=== PATIENT | female | born 1950 | race Caucasian/White ===

== ENCOUNTER 2024-12-05 03:35 | Emergency (ER) | payer MEDICARE, MEDICAID, SELFPAY ==
[2024-12-05 03:37] VITALS: BP 159/70; PULSE 67; RESP 18; TEMP 36.7; O2SAT 98; BMI 27.4
[2024-12-05 03:54] LABS: Hematocrit 36.9 % (37.0-47.0); Hemoglobin 12.2 g/dL (12.2-16.2); Immature Granulocytes % 0.1 %; Mean Corpuscular HGB Conc 33.1 g/dL (31.8-35.4); Mean Corpuscular Hemoglobin 30.4 pg (27.0-31.2); Mean Corpuscular Volume 92.0 fl (81-99); Nucleated Red Blood Cells % 0 %; Platelet Count 224 K/mm3 (142-424); Red Blood Count 4.01 M/mm3 (4.20-5.40); Red Cell Distribution Width-SD 45.1 fL; White Blood Count 6.7 K/mm3 (4.8-10.8)
[2024-12-05] MEDS: ACETAMINOPHEN 500MG TAB 1000 MG PO (03:56)
[2024-12-05 03:57] LABS: Albumin Level 4.4 g/dl (3.5-5.0); Chloride 105 mmol/L (98-107); Potassium 3.5 mmoL/L (3.5-5.1); Sodium 134 mmol/L (136-145)
[2024-12-05 04:00] LABS: Alanine Aminotransferase 20 U/L (12-78); Albumin/Globulin Ratio 2.0 (1.1-1.8); Alkaline Phosphatase 70 U/L (38-126); Anion Gap 8.5 mEq/L (5-15); Aspartate Amino Transferase 24 U/L (14-36); Bilirubin,Total 1.0 mg/dl (0.2-1.3); Blood Urea Nitrogen 10 mg/dl (7-17); Calcium 9.5 mg/dl (8.4-10.2); Carbon Dioxide 24 mmol/L (22.0-30.0); Creatinine Clearance Estimated 55 mL/min (50-200); Creatinine,Serum 0.70 mg/dl (0.52-1.04); Estimated Glomerular Filt Rate 82 ml/min (>60); GFR (African American) 100 ML/MIN (>60); Globulin 2.2 g/dL (1.3-3.2); Glucose 112 mg/dl (74-100); Magnesium 2.1 mg/dl (1.6-2.3); Phosphorous 3.2 mg/dl (2.5-4.5); Total Protein,Serum 6.6 g/dl (6.3-8.2)
[2024-12-05 04:13] LABS: Acetaminophen < 10 ug/ml (10-30); Salicylate < 1.0 mg/dL (2.0-20.0)
[2024-12-05 04:23] LABS: T4 (Thyroxine) 6.7 ug/dl (5.53-11.0)
[2024-12-05 04:36] LABS: Thyroid Stimulating Hormone 1.80 uIU/mL (0.465-4.68)
--- NOTE | 2024-12-05 04:38 | PC.NURSE ---
Called [facility] for a possible transfer to [facility]
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
[2024-12-05 05:10] LABS: Hepatitis C Ab Qual. W/ RFX NEGATIVE (Negative)
[2024-12-05 05:11] LABS: Microscopic, Urine URINE MICROSCOPIC (MICROSCOPIC)
[2024-12-05 05:13] LABS: Bilirubin,Urine Negative (Negative); Color,Urine YELLOW (Yellow); Glucose,Urine (UA) Negative (Negative); Ketones,Urine Negative (Negative); Leukocyte Esterase,Urine 1+ (Negative); PH,Urine 7.0 (5.0-8.5); Protein,Urine Negative (Negative); Specific Gravity, Urine 1.020 (1.005-1.030); Urobilinogen,Urine 1.0 EU/dl (0.2)
[2024-12-05 05:20] LABS: Bacteria,Urine Trace /lpf; RBC,Urine Occasional #/hpf (0-3); Squamous Epithelial Cell,Urine Occasional #/hpf (0-5)
[2024-12-05 05:26] LABS: Amphetamine/Metha Screen,Urine Negative ng/ml (<1000); Benzodiazepines Screen,Urine Positive ng/ml (<200)
[2024-12-05 05:27] LABS: Barbiturates Screen,Urine Negative ng/ml (<200)
[2024-12-05 05:29] LABS: Methadone Screen,Urine Negative ng/ml (<300); Opiate Screen,Urine Negative ng/ml (<300)
[2024-12-05 05:30] LABS: Phencyclidine Screen,Urine Negative ng/ml (<25)
--- NOTE | 2024-12-05 05:31 | PC.NURSE ---
Report to Carmelita RAMIREZ.
--- NOTE | 2024-12-05 05:34 | PC.NURSE ---
IV removed with cath intact.
[2024-12-05 05:53] VITALS: BP 145/71; PULSE 65; RESP 16; TEMP 36.8; O2SAT 98
--- NOTE | 2024-12-07 10:59 | PC.NURSE ---
[facility] spoke with employee there. She verbally took preliminary urine culture results over the phone and states she will make sure that information gets forwarded to appropriate person.
== END 2024-12-05 05:55 ==
PROVIDERS: Emergency Provider Emergency Medicine
DX: F31.10 Bipolar disorder, current episode manic without psychotic features, unspecified (principal); R44.3 Hallucinations, unspecified; R45.1 Restlessness and agitation
CPT/HCPCS: 80053; 80307; 80329; 81001; 83735; 84100; 84436; 84443; 85025; 86803; 87086; 87088; 87186; 87389; 99285

== ENCOUNTER 2025-02-17 17:34 | Emergency (ER) | payer MEDICARE, MEDICAID, SELFPAY ==
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
[2025-02-17] VITALS (7 sets, daily range): BP systolic 153–170; BP diastolic 70–78; PULSE 72–82; RESP 16–20; TEMP 36.6–37.4; O2SAT 96–99; BMI 32.0
--- OUTSIDE RECORDS SUMMARY | 2025-02-17 17:57 | XMS_ITS | Encounter Summary ---
Author Organization Healthcare Address [address] [place] [address] Care Team Providers Care Service Planner Name Role Phone Pcp, No Primary Care Provider Unavailabl e Encounter Details Date Type Department Care Team (Late st Contact Info) Description 12/14/2024 Lab Requisition [facility] [address] [place] [address] German Abarca MD [address] [place] [address] Routine general medical examination at a health care facility Social History Tobacco Use Types Packs/Day Years [...] answer 12/05/2024 How often do you attend chur or religion services? Patient unable to answer 12/05/2024 Do you belong to any clubs o r organizations such as religious groups, unions, fraternal or athletic groups, or [...] one occasion? Patient unable to answer 12/05/2024 [facility] - Occupational Stress Questionnaire Answer Date Recorded [...] any time in the past 12 m ont, were you homeless or living in a alf (including now)? Patient unable to answer 12/05/2024 [...] on file documented as of this encounter Plan of Treatment Not on file documented as of this encounter Procedures Procedure Name Priority Date/Time Associated Diagnosis Comments CBC WITH AUTO DIFFERENTIAL Routine 12/14/2024 5:57 AM EDT Routine general medical examination at a health care facility VALPROIC ACID LEVEL, TOTAL Routine 12/14/2024 5:57 AM EDT Routine general medical examination at a health care facility COMPREHENSIVE METABOLIC PANEL, PLASMA Routine 12/14/2024 5:57 AM EDT Routine general medical examination at a health care facility documented in this encounter Results * (ABNORMAL) Comprehensive metabolic panel (12/14/2024 5:57 AM EDT) Glucose, Plasma 100(H) 74 - 99 mg/dL 12/14/2024 10:07 AM EDT [facility] BUN, Plasma 18 8 - 23 mg/dL 12/14/2024 10:07 AM [facility] Creatinine, Plasma 0.70 0.60 - 1.10 mg/dL 12/14/2024 10:07 AM [facility] BUN/Creatinine Ratio 26 12/14/2024 10:07 AM [facility] Sodium, Plasma 144 136 - 145 mmol/L 12/14/2024 10:07 AM [facility] Potassium, Plasma 4.2 3.6 - 4.9 mmol/L 12/14/2024 10:07 AM [facility] Chloride, Plasma 105 97 - 107 mmol/L 12/14/2024 10:07 AM [facility] CO2, Plasma 29 22 - 29 mmol/L 12/14/2024 10:07 AM [facility] Anion Gap 10 6 - 16 mmol/L 12/14/2024 10:07 AM [facility] Total Calcium, Plasma 9.0 8.9 - 10.2 mg/dL 12/14/2024 10:07 AM [facility] Total Protein 5.7(L) 6.3 - 7.9 g/dL 12/14/2024 10:07 AM [facility] Albumin, Plasma 3.7 3.5 - 5.2 g/dL 12/14/2024 10:07 AM [facility] AST, Plasma 36(H) 10 - 35 U/L 12/14/2024 10:07 AM [facility] ALT, Plasma 29 10 - 35 U/L 12/14/2024 10:07 AM [facility] Alkaline Phosphatase, Plasma 61 46 - 142 U/L 12/14/2024 10:07 AM [facility] Total Bilirubin, Plasma 0.2 0.2 - 1.1 mg/dL 12/14/2024 10:07 AM [facility] eGFRcr 92.0 mL/min/1.7 3m*2 12/14/2024 10:07 AM [facility] Comment:Reported eGFRcr in m L/min/1.73m2 is based the CKD-EPI 2020 equation that does not use a race coefficient. Blood Venous blood specimen / Unknown Venipuncture / Unknown 12/14/2024 5:57 AM EDT 12/14/2024 7:43 AM EDT us German Abarca MD LAB BLOOD ORDERABLES Final Result [facility] [address] [place] [address] * CBC and Differential (12/14/2024 5:57 AM EDT) WBC Count 7.27 3.70 - 10.30 10*3/uL LAB HEMATOLOGY METHOD 12/14/2024 9:42 AM EDT [facility] RBC Count 4.06 3.90 - 5.20 10*6/uL LAB HEMATOLOGY METHOD 12/14/2024 9:42 AM EDT [facility] HGB 12.2 11.2 - 15.7 g/dL LAB HEMATOLOGY METHOD 12/14/2024 9:42 AM EDT [facility] HCT 38.0 34.0 - 45.0 % LAB HEMATOLOGY METHOD 12/14/2024 9:42 AM EDT [facility] Platelet Count 243 155 - 369 10*3/uL LAB HEMATOLOGY METHOD 12/14/2024 9:42 AM EDT [facility] MCV 94 79 - 98 fL LAB HEMATOLOGY METHOD 12/14/2024 9:42 AM EDT [facility] MCH 30.0 26.0 - 32.0 pg LAB HEMATOLOGY METHOD 12/14/2024 9:42 AM EDT [facility] MCHC 32.1 30.7 - 35.5 g/dL LAB HEMATOLOGY METHOD 12/14/2024 9:42 AM EDT [facility] RDW 13.0 11.5 - 14.5 % LAB HEMATOLOGY METHOD 12/14/2024 9:42 AM EDT [facility] MPV 10.0 8.8 - 12.5 fL LAB HEMATOLOGY METHOD 12/14/2024 9:42 AM EDT [facility] nRBC 0.0 <=0.0 per 100 WBCs LAB HEMATOLOGY METHOD 12/14/2024 9:42 AM EDT [facility] Differential Type Automated LAB HEMATOLOGY METHOD 12/14/2024 9:42 AM EDT [facility] Neutrophils % 49 % LAB HEMATOLOGY METHOD 12/14/2024 9:42 AM EDT [facility] Lymphocytes % 39 % LAB HEMATOLOGY METHOD 12/14/2024 9:42 AM EDT [facility] Monocytes % 9 % LAB HEMATOLOGY METHOD 12/14/2024 9:42 AM EDT [facility] Eosinophils % 2 % LAB HEMATOLOGY METHOD 12/14/2024 9:42 AM EDT [facility] Basophils % 1 % LAB HEMATOLOGY METHOD 12/14/2024 9:42 AM EDT [facility] Immature Granulocytes % 0 % LAB HEMATOLOGY METHOD 12/14/2024 9:42 AM EDT [facility] Neutrophils Absolute 3.55 1.60 - 6.10 10*3/uL LAB HEMATOLOGY METHOD 12/14/2024 9:42 AM EDT [facility] Lymphocytes Absolute 2.85 1.20 - 3.90 10*3/uL LAB HEMATOLOGY METHOD 12/14/2024 9:42 AM EDT [facility] Monocytes Absolute 0.68 0.30 - 0.90 10*3/uL LAB HEMATOLOGY METHOD 12/14/2024 9:42 AM EDT [facility] Eosinophils Absolute 0.11 0.00 - 0.50 10*3/uL LAB HEMATOLOGY METHOD 12/14/2024 9:42 AM EDT [facility] Basophils Absolute 0.06 0.00 - 0.10 10*3/uL LAB HEMATOLOGY METHOD 12/14/2024 9:42 AM EDT [facility] Immature Granulocytes Absolute 0.02 0.00 - 0.06 10*3/uL LAB HEMATOLOGY METHOD 12/14/2024 9:42 AM EDT [facility] Blood Venous blood specimen / Unknown Venipuncture / Unknown 12/14/2024 5:57 AM EDT 12/14/2024 7:43 AM EDT Narrative [facility] - 12/14/2024 9:42 AM EDT Therapeutic decision making should be based on absolute values, rather than percentages. us German Abarca MD LAB BLOOD ORDERABLES Final Result [facility] [address] [place] [address] * (ABNORMAL) Valproic acid level, total (12/14/2024 5:57 AM EDT) Valproic Acid 30(L) 50 - 100 ug/mL 12/14/2024 11:01 AM EDT [facility] Blood Venous blood specimen / Unknown Venipuncture / Unknown 12/14/2024 5:57 AM EDT 12/14/2024 7:43 AM EDT Narrative [facility] - 12/14/2024 11:01 AM EDT Therapeutic: 50 to 100 ug/mL Supratherapeutic: >120 ug/mL us German Abarca MD LAB BLOOD ORDERABLES Final Result [facility] [address] [place] [address] documented in this encounter Visit Diagnoses Diagnosis Routine general medical examination at a health care facility documented in this encounter Care Teams Service Planner Relationship Specialty Start Date End Date Pcp, No [address] [place] [address] PCP - General Family Medicine 12/05/24 documented as of this encounter
--- OUTSIDE RECORDS SUMMARY | 2025-02-17 17:58 | XMS_ITS | Encounter Summary ---
Author Organization Healthcare Address [address] [id number] Care Team Providers Care Sports Umpire Name Role Phone Pcp, No Primary Care Provider Unavailabl e Encounter Details Date Type Department Care Team (Late st Contact Info) Description 12/11/2024 Lab Requisition [facility] [address] [place] [address] Arvind Connell MD [address] [phone] Routine general medical examination at a health [...] How often do you attend chur or quaker services? Patient unable to answer 12/05/2024 Do you belong to any clubs o r organizations such as jainism groups, unions, fraternal or athletic groups, or [...] one occasion? Patient unable to answer 12/05/2024 [facility] - Occupational Stress Questionnaire Answer Date [...] any time in the past 12 m [facility], were you homeless or living in a half-way (including now)? Patient unable to answer 12/05/2024 [...] Procedure Name Priority Date/Time Associated Diagnosis Comments METHYLMALONIC ACID SERUM Routine 12/11/2024 6:34 AM EDT Routine general medical examination at a health care facility VITAMIN D 25 HYDROXY Routine 12/11/2024 6:34 AM EDT Routine general medical examination at a health care facility VITAMIN B1 (THIAMINE), WHOLE BLOOD (SO) Routine 12/11/2024 6:34 AM EDT Routine general medical examination at a health care facility VITAMIN B12, SERUM Routine 12/11/2024 6: 34 AM EDT Routine general medical examination at a health care facility documented in this encounter Results * Vitamin D 25 Hydroxy (12/11/2024 6:34 AM EDT) Vitamin D 25 Hydroxy 44.6 20.0 - 80.0 ng/mL 12/11/2024 10:49 AM EDT [facility] Blood Venous blood specimen / Unknown Venipuncture / Unknown 12/11/2024 6:34 AM EDT 12/11/2024 8:[address] [facility] - 12/11/2024 10:49 AM EDT Testing performed on Sebastian Bargeman, standardized against NIST SRM 2972. When testing samples from patients whose predominant form of vitamin D is vitamin D2, such as patients receiving vitamin D2 supplementation, results that are subtherapeutic should be confirmed with another method, such as LC-MS/MS, before being used for patient management. Vitamin D, 25-Hydroxy reference range, age 18 years and up: Deficiency: <12 ng/mL Insufficiency: 12 to 19 ng/mL Sufficiency: 20 to 80 ng/mL Possible toxicity: >100 ng/mL Arvind Connell MD LAB BLOOD ORDERABLES Final Res ult Performing Organization Address [facility] Co de Phone Number [facility] [address] [place] [address] * Methylmalonic acid, serum (12/11/2024 6:34 AM EDT) Methylmalonic Acid 88 50 - 400 nmol/L 12/14/2024 3:[address] [facility] Blood Venous blood specimen / Unknown Venipuncture / Unknown 12/11/2024 6:34 AM EDT 12/11/2024 8:[address] [facility] - 12/14/2024 3:24 AM EDT Test performed by LC-MS/MS at the [facility]. This test was developed and its performance characteristics determined by [facility]. It has not been cleared or approved by the FDA. The laboratory is regulated under CLIA as qualified to perform high-complexity testing. This test is used for clinical purposes. Arvind Connell MD LAB BLOOD ORDERABLES Final Res ult [facility] [address] [place] [address] * Vitamin B1, Whole Blood (12/11/2024 6:34 AM EDT) VITAMIN B1, WHOLE BLOOD 124 70 - 180 nmol/L 12/14/2024 5:56 AM EDT [facility] Blood Venous blood specimen / Unknown Venipuncture / Unknown 12/11/2024 6:34 AM EDT 12/11/2024 6:40 AM EDT Narrative [facility] - 12/14/2024 5:56 AM EDT INTERPRETIVE INFORMATION: Vitamin B1, Whole Blood This assay measures the concentration of thiamine diphosphate (TDP), the primary active form of vitamin B1. Approximately 90 percent of vitamin B1 present in whole blood is TDP. Thiamine and thiamine monophosphate, which comprise the remaining 10 percent, are not measured. This test was developed and its performance characteristics determined by [facility]. It has not been cleared or approved by the [place] Food and Drug Administration. This test was performed in a CLIA certified laboratory and is intended for clinical purposes. Performed By: [facility] [address] [place] [address] Plater Supervisor: Ernie Miranda MD, PhD CLIA Number: [id number] Arvind Connell MD LAB BLOOD ORDERABLES Final Res ult Performing Organization Address [facility] de Phone Number [facility] [address] [place] [address] * Vitamin B12 (12/11/2024 6:34 AM EDT) [facility] Vitamin B12, Serum 263 210 - 1,033 pg/mL 12/11/2024 10:39 AM EDT [facility] Blood Venous blood specimen / Unknown Venipuncture / Unknown 12/11/2024 6:34 AM EDT 12/11/2024 8:20 AM EDT Arvind Connell MD LAB BLOOD ORDERABLES Final Res ult [facility] [address] [place] [address] documented in this encounter Visit Diagnoses Diagnosis Routine general medical examination at a health care facility documented in this encounter Care Teams Sports Umpire Relationship Specialty Start Date End Date Pcp, No [address] [place] [address] PCP - General Family Medicine 12/05/24 documented as of this encounter
--- OUTSIDE RECORDS SUMMARY | 2025-02-17 17:58 | XMS_ITS | Encounter Summary ---
Author Organization Healthcare Address [address] [place] [address] Care Team Providers Care Automated Manufacturing Instructor Name Role Phone Pcp, No Primary Care Provider Unavailabl e Encounter Details Date Type Department Care Team (Late st Contact Info) Description 01/02/2025 Lab Requisition [facility] [address] [place] [address] Lewis Price MD [address] [place], [place] [id number] Routine general medical examination at a health [...] How often do you attend chur or islam services? Patient unable to answer 12/05/2024 Do you belong to any clubs o r organizations such as amish groups, unions, fraternal or athletic groups, or [...] one occasion? Patient unable to answer 12/05/2024 [facility] - Occupational Stress Questionnaire Answer Date [...] were you homeless or living in a custodial (including now)? Patient unable to answer 12/05/2024 [...] Recorded In the past 12 months has e electric, gas, oil, or water company [...] Diagnosis Comments CBC WITH AUTO DIFFERENTIAL Routine 01/02/2025 7:43 AM EDT Routine general medical examination at a health care facility VALPROIC ACID LEVEL, TOTAL Routine 01/02/2025 7:43 AM EDT Routine general medical examination at a health care facility COMPREHENSIVE METABOLIC PANEL, PLASMA Routine 01/02/2025 7:43 AM EDT Routine general medical examination at a health care facility documented in this encounter Results * (ABNORMAL) Comprehensive metabolic panel (01/02/2025 7:43 AM EDT) Glucose, Plasma 98 74 - 99 mg/dL 01/02/2025 11:44 AM EDT [facility] BUN, Plasma 14 8 - 23 mg/dL 01/02/2025 11:44 AM EDT [facility] Creatinine, Plasma 0.66 0.60 - 1.10 mg/dL 01/02/2025 11:44 AM EDT [facility] BUN/Creatinine Ratio 21 01/02/2025 11:44 AM EDT [facility] Sodium, Plasma 137 136 - 145 mmol/L 01/02/2025 11:44 AM T [facility] Potassium, Plasma 4.6 3.6 - 4.9 mmol/L 01/02/2025 11:44 AM [facility] Chloride, Plasma 99 97 - 107 mmol/L 01/02/2025 11:44 AM T [facility] CO2, Plasma 26 22 - 29 mmol/L 01/02/2025 11:44 AM T [facility] Anion Gap 12 6 - 16 mmol/L 01/02/2025 11:44 AM T [facility] Total Calcium, Plasma 8.5(L) 8.9 - 10.2 mg/dL 01/02/2025 11:44 AM [facility] Total Protein 6.1(L) 6.3 - 7.9 g/dL 01/02/2025 11:44 AM [facility] Albumin, Plasma 4.0 3.5 - 5.2 g/dL 01/02/2025 11:44 AM T [facility] AST, Plasma 19 10 - 35 U/L 01/02/2025 11:44 AM [facility] ALT, Plasma 13 10 - 35 U/L 01/02/2025 11:44 AM [facility] Alkaline Phosphatase, Plasma 64 46 - 142 U/L 01/02/2025 11:44 AM [facility] Total Bilirubin, Plasma 0.2 0.2 - 1.1 mg/dL 01/02/2025 11:44 AM [facility] eGFRcr 93.3 mL/min/1.7 3m*2 01/02/2025 11:44 AM [facility] Comment:Reported eGFRcr in m L/min/1.73m2 is based the CKD-EPI 2020 equation that does not use a race coefficient. Blood Venous blood specimen / Unknown Venipuncture / Unknown 01/02/2025 7:43 AM EDT 01/02/2025 8:36 AM EDT us Lewis Price MD LAB BLOOD ORDERABLES Fin al Result [facility] [address] [place] [address] * CBC and Differential (01/02/2025 7:43 AM EDT) WBC Count 7.53 3.70 - 10.30 10*3/uL LAB HEMATOLOGY METHOD 01/02/2025 11:16 AM EDT [facility] RBC Count 4.14 3.90 - 5.20 10*6/uL LAB HEMATOLOGY METHOD 01/02/2025 11:16 AM EDT [facility] HGB 12.5 11.2 - 15.7 g/dL LAB HEMATOLOGY METHOD 01/02/2025 11:16 AM EDT [facility] HCT 39.3 34.0 - 45.0 % LAB HEMATOLOGY METHOD 01/02/2025 11:16 AM EDT [facility] Platelet Count 294 155 - 369 10*3/uL LAB HEMATOLOGY METHOD 01/02/2025 11:16 AM EDT [facility] MCV 95 79 - 98 fL LAB HEMATOLOGY METHOD 01/02/2025 11:16 AM EDT [facility] MCH 30.2 26.0 - 32.0 pg LAB HEMATOLOGY METHOD 01/02/2025 11:16 AM EDT [facility] MCHC 31.8 30.7 - 35.5 g/dL LAB HEMATOLOGY METHOD 01/02/2025 11:16 AM EDT [facility] RDW 13.3 11.5 - 14.5 % LAB HEMATOLOGY METHOD 01/02/2025 11:16 AM EDT [facility] MPV 10.0 8.8 - 12.5 fL LAB HEMATOLOGY METHOD 01/02/2025 11:16 AM EDT [facility] nRBC 0.0 <=0.0 per 100 WBCs LAB HEMATOLOGY METHOD 01/02/2025 11:16 AM EDT [facility] Differential Type Automated LAB HEMATOLOGY METHOD 01/02/2025 11:16 AM EDT [facility] Neutrophils % 61 % LAB HEMATOLOGY METHOD 01/02/2025 11:16 AM EDT [facility] Lymphocytes % 25 % LAB HEMATOLOGY METHOD 01/02/2025 11:16 AM EDT [facility] Monocytes % 10 % LAB HEMATOLOGY METHOD 01/02/2025 11:16 AM EDT [facility] Eosinophils % 2 % LAB HEMATOLOGY METHOD 01/02/2025 11:16 AM EDT [facility] Basophils % 1 % LAB HEMATOLOGY METHOD 01/02/2025 11:16 AM EDT [facility] Immature Granulocytes % 1 % LAB HEMATOLOGY METHOD 01/02/2025 11:16 AM EDT [facility] Neutrophils Absolute 4.63 1.60 - 6.10 10*3/uL LAB HEMATOLOGY METHOD 01/02/2025 11:16 AM EDT [facility] Lymphocytes Absolute 1.89 1.20 - 3.90 10*3/uL LAB HEMATOLOGY METHOD 01/02/2025 11:16 AM EDT [facility] Monocytes Absolute 0.73 0.30 - 0.90 10*3/uL LAB HEMATOLOGY METHOD 01/02/2025 11:16 AM EDT [facility] Eosinophils Absolute 0.16 0.00 - 0.50 10*3/uL LAB HEMATOLOGY METHOD 01/02/2025 11:16 AM EDT [facility] Basophils Absolute 0.06 0.00 - 0.10 10*3/uL LAB HEMATOLOGY METHOD 01/02/2025 11:16 AM EDT [facility] Immature Granulocytes Absolute 0.06 0.00 - 0.06 10*3/uL LAB HEMATOLOGY METHOD 01/02/2025 11:16 AM EDT [facility] Blood Venous blood specimen / Unknown Venipuncture / Unknown 01/02/2025 7:43 AM EDT 01/02/2025 8:36 AM EDT Narrative [facility] - 01/02/2025 11:16 AM EDT Therapeutic decision making should be based on absolute values, rather than percentages. us Lewis Price MD LAB BLOOD ORDERABLES Fin al Result [facility] [address] [place] [id number] * Valproic acid level, total (01/02/2025 7:43 AM EDT) Valproic Acid 71 50 - 100 ug/mL 01/02/2025 11:13 AM EDT [facility] Blood Venous blood specimen / Unknown Venipuncture / Unknown 01/02/2025 7:43 AM EDT 01/02/2025 8:36 AM EDT Narrative [facility] - 01/02/2025 11:13 AM EDT Therapeutic: 50 to 100 ug/mL Supratherapeutic: >120 ug/mL us Lewis Price MD LAB BLOOD ORDERABLES Fin al Result [facility] [address] [place] [address] documented in this encounter Visit Diagnoses Diagnosis Routine general medical examination at a health care facility documented in this encounter Care Teams Automated Manufacturing Instructor Relationship Specialty Start Date End Date Pcp, No [address] [place] [address] PCP - General Family Medicine 12/05/24 documented as of this encounter
--- OUTSIDE RECORDS SUMMARY | 2025-02-17 17:58 | XMS_ITS | Encounter Summary ---
Author Organization Healthcare Address [address] [place] [address] Care Team Providers Care Gis Engineer Name Role Phone Pcp, No Primary Care Provider Unavailabl e Encounter Details Date Type Department Care Team (Late st Contact Info) Description 12/13/[address] [facility] [address] [place] [address] Barrera Everett PA [address] [place] [address] Routine general medical examination at [...] How often do you attend chur or yazdanism services? Patient unable to answer 12/05/2024 Do you belong to any clubs o r organizations such as pentecostalism groups, unions, fraternal or athletic groups, or [...] one occasion? Patient unable to answer 12/05/2024 [facility] - Occupational Stress Questionnaire Answer Date [...] were you homeless or living in a halfway (including now)? Patient unable to answer 12/05/2024 [...] on file documented as of this encounter Visit Diagnoses Diagnosis Routine general medical examination at a health care facility documented in this encounter Care Teams Gis Engineer Relationship Specialty Start Date End Date Pcp, [place] [address] PCP - General Family Medicine 12/05/24 documented as of this encounter
--- OUTSIDE RECORDS SUMMARY | 2025-02-17 17:58 | XMS_ITS | Encounter Summary ---
Author Organization Healthcare Address [address] [place] [address] Care Team Providers Care Bank Officer Name Role Phone Pcp, No Primary Care Provider Unavailabl e Encounter Details Date Type Department Care Team (Late st Contact Info) Description 12/12/2024 Lab Requisition [facility] [address] [place] [address] Jennifer Krishnan PA [address] [place] [address] Routine general medical examination at [...] How often do you attend chur or roman catholic services? Patient unable to answer 12/05/2024 Do you belong to any clubs o r organizations such as yazidism groups, unions, fraternal or athletic groups, or [...] one occasion? Patient unable to answer 12/05/2024 [facility] - Occupational Stress Questionnaire Answer Date Recorded [...] any time in the past 12 m onths, were you homeless or living in a [...] Procedure Name Priority Date/Time Associated Diagnosis Comments SEND JENNIFER MESSAGE Routine 12/12/2024 8: 00 AM EDT Routine general medical examination at a health care facility URINALYSIS WITH REFLEX MICROSCOPIC AND CULTURE Routine 12/12/2024 8:00 AM EDT Routine general medical examination at a health care facility URINE ASHTON PANEL Routine 12/12/2024 8:00 AM EDT Routine general medical examination at a health care facility URINALYSIS MICROSCOPIC FOR UA REFLEX Routine 12/12/2024 8:00 AM EDT Routine general medical examination at a health care facility URINALYSIS WITH REFLEX MICROSCOPIC Routine 12/12/2024 8:00 AM EDT Routine general medical examination at a health care facility URINE CULTURE Routine 12/12/2024 8:00 AM EDT Routine general medical examination at a health care facility documented in this encounter Results * SEND JENNIFER MESSAGE (12/12/2024 8:00 AM EDT) Urine Urine specimen obtained by clean catch procedure / Unknown Non-blood Collection / Unknown 12/12/2024 8:00 AM EDT 12/12/2024 9:20 AM EDT Jennifer WHITLEY [facility] URINE ORDERABLES Final Re sult Performing Organization Address [facility] de Phone Number [facility] [address] [place] [address] * Urine Culture (12/12/2024 8:00 AM EDT) Culture 10,000 - 100,000 CFU/mL Mixed urogenital, fecal, or skin ge present. 12/13/2024 2:05 PM EDT [facility] Urine Urine specimen obtained by clean catch procedure / Unknown Non-blood Collection / Unknown 12/12/2024 8:00 AM EDT 12/12/2024 9:20 AM EDT us Jennifer WHITLEY [facility] MICROBIOLOGY - GENERAL OR DERABLES Final Result Performing Organization Address [facility] Phone Number [facility] [address] [place] [address] * Urinalysis Microscopic Examination (12/12/2024 8:00 AM EDT) Urine Urine specimen obtained by clean catch procedure / Unknown Non-blood Collection / Unknown 12/12/2024 8:00 AM EDT 12/12/2024 9:20 AM EDT us Jennifer WHITLEY [facility] URINE ORDERABLES Final Re sult Performing Organization Address [facility] Co de Phone Number [facility] [address] [place] [address] * Urine [place] Panel (12/12/2024 8:00 AM EDT) Extra Sent for Culture 12/12/2024 1:01 PM EDT [facility] Comment:Previously prelim ve rified as Specimen evaluation in progress on 12/12/2024 at 1201 EDT. Urine Urine specimen obtained by clean catch procedure / Unknown Non-blood Collection / Unknown 12/12/2024 8:00 AM EDT 12/12/2024 9:20 AM EDT us Jennifer WHITLEY [facility] URINE ORDERABLES Final Re sult [facility] [address] [place] [address] * (ABNORMAL) Urinalysis with reflex microscopic (Culture NOT Included) (12/12/2024 8:00 AM EDT) Color, Urine Yellow LAB URINALYSIS - AUTOMATED METHOD 12/12/2024 12:14 PM EDT [facility] Clarity, Urine Cloudy LAB URINALYSIS - AUTOMATED METHOD 12/12/2024 12:14 PM EDT [facility] Spec [place], Urine 1.021 1.005 - 1.030 LAB URINALYSIS - AUTOMATED METHOD 12/12/2024 12:14 PM EDT [facility] pH, Urine 6.5 5.0 - 8.0 LAB URINALYSIS - AUTOMATED METHOD 12/12/2024 12:14 PM EDT [facility] Protein, Urine Trace(A) Negative mg/dL LAB URINALYSIS - AUTOMATED METHOD 12/12/2024 12:14 PM EDT [facility] Glucose, Urine Negative Negative mg/dL LAB URINALYSIS - AUTOMATED METHOD 12/12/2024 12:14 PM EDT [facility] Ketones, Urine 15(A) Negative mg/dL LAB URINALYSIS - AUTOMATED METHOD 12/12/2024 12:14 PM EDT [facility] Blood, Urine Negative Negative LAB URINALYSIS - AUTOMATED METHOD 12/12/2024 12:14 PM EDT [facility] Bilirubin, Urine Negative Negative LAB URINALYSIS - AUTOMATED METHOD 12/12/2024 12:14 PM EDT [facility] Urobilinogen, Urine 1.0 0.2 to 1.0 mg/dL LAB URINALYSIS - AUTOMATED METHOD 12/12/2024 12:14 PM EDT [facility] Leukocytes, Urine Moderate(A) Negative LAB URINALYSIS - AUTOMATED METHOD 12/12/2024 12:14 PM EDT [facility] Nitrite, Urine Negative Negative LAB URINALYSIS - AUTOMATED METHOD 12/12/2024 12:14 PM EDT [facility] RBC, Urine <1 0 to 3 /HPF 12/12/2024 12:14 PM EDT [facility] Comment:This result was prev iously suppressed from the chart. WBC, Urine 11 - 20(A) 0 to 5 /HPF 12/12/2024 12:14 PM EDT [facility] Comment:This result was prev iously suppressed from the chart. Squamous Epithelial Cells 11 - 20(A) 0 to 5 /HPF 12/12/2024 12:14 PM EDT [facility] Comment:This result was prev iously suppressed from the chart. Hyaline Casts 0 - 2 0 to 5 /LPF 12/12/2024 12:14 PM EDT [facility] Comment:This result was prev iously suppressed from the chart. Bacteria, Urine Present Negative 12/12/2024 12:14 PM EDT [facility] Comment:This result was prev iously suppressed from the chart. Calcium Oxalate Crystals Present Absent 12/12/2024 12:14 PM EDT [facility] Comment:This result was prev iously suppressed from the chart. Mucus Present 12/12/2024 12:14 PM EDT [facility] Comment:This result was prev iously suppressed from the chart. Urine Urine specimen obtained by clean catch procedure / Unknown Non-blood Collection / Unknown 12/12/2024 8:00 AM EDT 12/12/2024 9:20 AM EDT Narrative [facility] - 12/12/2024 12:14 PM EDT Performed by manual method us Jennifer WHITLEY LAB URINE ORDERABLES Final Re sult [facility] [address] [place] [address] documented in this encounter Visit Diagnoses Diagnosis Routine general medical examination at a health care facility documented in this encounter Care Teams Bank Officer Relationship Specialty Start Date End Date Pcp, Valeria [address] [place] [address] PCP - General Family Medicine 12/05/24 documented as of this encounter
--- OUTSIDE RECORDS SUMMARY | 2025-02-17 17:58 | XMS_ITS | Clinical Summary ---
Author Organization Healthcare Address [address] [place] [address] Care Team Providers Care Results Technician Name Role Phone Pcp, No Primary Care Provider Unavailabl e Allergies Active Allergy Reactions Criticality Noted Date Comments Aspirin Unknown - Patient st ates they do not know rxn details Low 06/10/2014 Sulfacetamide Unknown - Patient st ates they do not know rxn details Low 06/10/2014 Medications traZODone (Desyrel) 50 MG tabletIndications:B ehavioral Disorders associated with Dementia,Insomnia Take 1 tablet by mouth nightly. 5 Active OLANZapine zydis (ZyPREXA) 15 MG disintegrating tabletIndications:D elirium,Manic Phase of Bipolar Mood Disorder Dissolve 1 tablet on the tongue nightly. 5 Active divalproex (Depakote) [address] tabletIndications:M anic Phase of Bipolar Mood Disorder Take 1 tablet by mouth 2 times a day. Do not crush, chew, or split. 5 Active Active Problems Problem Noted Date Diagnosed Date Neurocognitive disorder 12/10/2024 Hyperlipidemia 12/10/2024 Vitamin D deficiency 12/10/2024 Allergic rhinitis 12/10/2024 Delirium 12/09/2024 Encounters Date Type Department Care Team Description 01/02/2025 Lab Requisition [facility] [address] [place] [address] Lewis Price MD Routine general medical examination at a health care facility 12/25/2024 Lab Requisition [facility] [address] [place] [address] Shailesh Slaughter DO Routine general medical examination at a health care facility 12/21/2024 11:42 AM EDT - 12/21/2024 11:59 PM EDT Hospital Encounter [facility] [address] [place] [address] Bipolar disorder; Cognitive decline; Acute psychosis (CMS/HCC) Discharge Disposition: Home or Self Care 12/21/2024 Travel 12/14/2024 Lab Requisition [facility] [address] [place] [address] German Abarca MD Routine general medical examination at a health care facility 12/13/2024 Telephone [facility] [address] [place] [address] Joan Flores 12/13/2024 Lab Requisition [facility] [address] [place] [address] Barrera Everett PA Routine general medical examination at a health care facility 12/12/2024 Lab Requisition [facility] [address] [place] [address] Jennifer Krishnan PA Routine general medical examination at a health care facility 12/11/2024 Lab Requisition [facility] [address] [place] [address] Arvind Connell MD Routine general medical examination at a health care facility 12/05/2024 7:24 AM EDT - 12/10/2024 4:30 PM EDT Hospital Encounter [facility] [address] [place] [address] Ian lamar, MD Ebonie Ramos Sarah M, DO Unspecified mood (affective) disorder (CMS/HCC) (Primary Dx); Bipolar disorder, current episode manic without psychotic features, unspecified (CMS/HCC) Discharge Disposition: Psychiatric Hospital 12/05/2024 Plan of Care Documentation [facility] [address] [place] [address] 12/05/2024 Travel from Last 3 Months Family History Medical History Relation Name Comments Bone cancer Father Heart attack Mother Hypertension Mother Stroke Mother Relation Name Status Comments Father Mother Social History Tobacco Use Types Packs/Day Years [...] answer 12/05/2024 How often do you attend [facility] or evangelical services? Patient unable to answer 12/05/2024 Do [...] one occasion? Patient unable to answer 12/05/2024 [facility] - Occup[facility] Stress [...] any time in the past 12 m [facility], were you homeless or living in a long-term (including now)? Patient unable to answer 12/05/2024 [...] the past 12 months has th e [employer], gas, oil, or water company threatened to shut off services in your home? Patient unable to answer 12/05/2024 Comments Unknown Sex and Gender Information Value Date Recorded Sex Assigned at Not on file Legal Sex Female 6:49 PM EDT Gender Identity Not on file Sexual Orientation Not on file Last Filed Vital Signs Vital Sign Reading Time Taken Comments Blood Pressure 116/69 12/10/2024 5:37 AM EDT Pulse 75 12/10/2024 5:37 AM EDT Temperature 36.7 C (98.1 F) 12/10/2024 5:37 AM EDT Respiratory Rate 20 12/07/2024 4:42 PM EDT Oxygen Saturation 98% 12/10/2024 5:37 AM EDT Inhaled Oxygen Concentration - - Weight 67.4 kg (148 lb 9.4 oz) 12/10/2024 5:52 A M EDT Height 152.4 cm (5') 12/05/2024 5:00 PM EDT Body Mass Index 29.02 12/05/2024 5:00 PM EDT Plan of Treatment Health Maintenance Due Date Last Done Comments [facility]-Bone Density Scan 1950 [facility]-Depression Screening 1950 [facility]-Hepatitis C Screening 1950 [facility]-Medicare Annual Wellness (AWV) 1950 [facility]-Obesity Intervention 1958 CT Colonography 1997 FIT-DNA 1997 FIT 1997 FOBT 1997 Sigmoidoscopy 1997 [facility]-Breast Cancer Screening 2002 [facility]-Zoster Vaccines (1 of 2) 2002 [facility]-IVITL-80 Vaccine ( season) 2025 06/11/2024, 12/07/2021, 12/21/2020, Additional history exists [facility]-Influenza Vaccine (#1) 01/14/202503/15, 03/02/2021, 02/28/2014, Additional history exists [facility]- SDOH Screenings 06/07/2025 [facility]-Adult SDOH Screenings 06/07/2025 12/05/2024 [facility]-/Child/Adol SDOH Screenings 06/07/2025 12/05/2024 Colonoscopy 11/05/2025 11/06/2015 [facility]-Colorectal Cancer Screening 11/05/2025 [facility]-Diabetes: Hemoglobin A1C 12/05/2025 12/05/2024, 02/05/2016 [facility]-RSV Vaccine: 60+ Years or (1 - 1-dose 75+ series) 2027 [facility]-DTaP,Tdap,and Td Vaccines (2 - Td or Tdap) 06/11/2034 06/11/2024 [facility]-Pneumococcal Vaccine: 50+ Years Completed 06/11/2024, 08/12/2021, 02/28/2014 HPV Vaccines Aged Out No longer eligi ble based on patient's age to complete this topic [facility]-HIB Vaccines Aged Out No longer e ligible based on patient's age to complete this topic [facility]-Hepatitis A Vaccines Aged Out No longer eligible based on patient's age to complete this topic [facility]-IPV Vaccines Aged Out No longer e ligible based on patient's age to complete this topic [facility]-Rotavirus Vaccines Aged Out No lo nger eligible based on patient's age to complete this topic Procedures Procedure Name Priority Date/Time Associated Diagnosis Comments COMPREHENSIVE METABOLIC PANEL, PLASMA Routine 01/02/2025 7:43 AM EDT Routine general medical examination at a health care facility CBC WITH AUTO DIFFERENTIAL Routine 01/02/2025 7:43 AM EDT Routine general medical examination at a health care facility VALPROIC ACID LEVEL, TOTAL Routine 01/02/2025 7:43 AM EDT Routine general medical examination at a health care facility VALPROIC ACID LEVEL, TOTAL Routine 12/25/2024 6:40 AM EDT Routine general medical examination at a health care facility CBC WITH AUTO DIFFERENTIAL Routine 12/25/2024 6:00 AM EDT Routine general medical examination at a health care facility ECG ADULT Routine 12/21/2024 2:01 PM EDT Therapeutic drug monitoring CT HEAD WO IV CONTRAST Routine 11:57 AM EDT Bipolar disorder Cognitive decline Acute psychosis (CMS/HCC) COMPREHENSIVE METABOLIC PANEL, PLASMA Routine 12/14/2024 5:57 AM EDT Routine general medical examination at a health care facility CBC WITH AUTO DIFFERENTIAL Routine 12/14/2024 5:57 AM EDT [facility] VALPROIC ACID LEVEL, TOTAL Routine 12/14/2024 5:57 AM EDT Routine general medical examination at a [facility] SEND JENNIFER MESSAGE Routine 12/12/2024 8: 00 AM EDT Routine general medical examination at a health care facility URINALYSIS MICROSCOPIC FOR UA REFLEX Routine 12/12/2024 8:00 AM EDT Routine general medical examination at a health care facility URINE ASHTON PANEL Routine 12/12/2024 8:00 AM EDT Routine general medical examination at a [facility] URINALYSIS WITH REFLEX MICROSCOPIC Routine 12/12/2024 8:00 AM EDT Routine general medical examination at a [facility] URINALYSIS WITH REFLEX MICROSCOPIC AND CULTURE Routine 12/12/2024 8:00 AM EDT Routine general medical examination at a health care facility URINE CULTURE Routine 12/12/2024 8:00 AM EDT Routine general medical examination at a [facility] VITAMIN D 25 HYDROXY Routine 12/11/2024 6:34 AM EDT Routine general medical examination at a health care facility METHYLMALONIC ACID SERUM Routine 12/11/2024 6:34 AM EDT Routine general medical examination at a health care facility VITAMIN B1 (THIAMINE), WHOLE BLOOD (SO) Routine 12/11/2024 6:34 AM EDT Routine general medical examination at a health care facility VITAMIN B12, SERUM Routine 12/11/2024 6: 34 AM EDT Routine general medical examination at a health care facility SEND JENNIFER MESSAGE STAT 12/05/2024 8: 51 PM EDT URINALYSIS MICROSCOPIC FOR UA REFLEX STAT 12/05/2024 8:51 PM EDT URINE ASHTON PANEL STAT 12/05/2024 8:51 PM EDT URINALYSIS WITH REFLEX MICROSCOPIC STAT 12/05/2024 8:51 PM EDT URINALYSIS WITH REFLEX MICROSCOPIC AND CULTURE STAT 12/05/2024 8:51 PM EDT URINE CULTURE STAT 12/05/2024 8:51 PM EDT LIPID PROFILE, PLASMA STAT 12/05/2024 8:30 PM EDT HEMOGLOBIN A1C STAT 12/05/2024 8:30 PM EDT FREE T4, PLASMA STAT 12/05/2024 8:30 PM EDT TSH STAT 12/05/2024 8:30 PM EDT PHOSPHORUS, PLASMA STAT 12/05/2024 8: 30 PM EDT MAGNESIUM, PLASMA STAT 12/05/2024 8:3 0 PM EDT COMPREHENSIVE METABOLIC PANEL, PLASMA STAT 12/05/2024 8:30 PM EDT CBC WITH AUTO DIFFERENTIAL STAT 12/05/2024 8:30 PM EDT HEPATITIS B SURFACE ANTIGEN - EMPATH STAT 12/05/2024 11:56 AM EDT HIV 1/2 ANTIBODY/ANTIGEN SCREEN WITH REFLEX TO HIV I/II DIFFERENTIATION STAT 12/05/2024 10:58 AM EDT HIV 1/2 ANTIBODY/ANTIGEN SCREEN W/REFLEX TO HIV 1/2 ANTIBODY DIFFERENTIATION STAT 12/05/2024 10:58 AM EDT HEPATITIS C ANTIBODY WITH REFLEX TO HCV QUANT PCR - EMPATH STAT 12/05/2024 10:57 AM EDT COLONOSCOPY 11/06/2015 from Last 3 Months or Most Recently Relevant to Health Maintenance Results * CBC and Differential (01/02/2025 7:43 AM EDT) Only the most recent of4 resultswithin the time period is included. WBC Count 7.53 3.70 - 10.30 10*3/uL LAB HEMATOLOGY METHOD 01/02/2025 11:16 AM EDT [facility] RBC Count 4.14 3.90 - 5.20 10*6/uL LAB HEMATOLOGY METHOD 01/02/2025 11:16 AM EDT [facility] HGB 12.5 11.2 - 15.7 g/dL LAB HEMATOLOGY METHOD 01/02/2025 11:16 AM EDT [facility] HCT 39.3 34.0 - 45.0 % LAB HEMATOLOGY METHOD 01/02/2025 11:16 AM EDT [facility] Platelet Count 294 155 - 369 10*3/uL LAB HEMATOLOGY METHOD 01/02/2025 11:16 AM EDT [facility] MCV 95 79 - 98 fL LAB HEMATOLOGY METHOD 01/02/2025 11:16 AM EDT [facility] MCH 30.2 26.0 - 32.0 pg LAB HEMATOLOGY METHOD 01/02/2025 11:16 AM EDT [facility] MCHC 31.8 30.7 - 35.5 g/dL LAB HEMATOLOGY METHOD 01/02/2025 11:16 AM EDT [facility] RDW 13.3 11.5 - 14.5 % LAB HEMATOLOGY METHOD 01/02/2025 11:16 AM EDT [facility] MPV 10.0 8.8 - 12.5 fL LAB HEMATOLOGY METHOD 01/02/2025 11:16 AM EDT [facility] nRBC 0.0 <=0.0 per 100 WBCs LAB HEMATOLOGY METHOD 01/02/2025 11:16 AM EDT [facility] Differential Type Automated LAB HEMATOLOGY METHOD 01/02/2025 11:16 AM EDT [facility] Neutrophils % 61 % LAB HEMATOLOGY METHOD 01/02/2025 11:16 AM EDT [facility] Lymphocytes % 25 % LAB HEMATOLOGY METHOD 01/02/2025 11:16 AM EDT [facility] Monocytes % 10 % LAB HEMATOLOGY METHOD 01/02/2025 11:16 AM EDT [facility] Eosinophils % 2 % LAB HEMATOLOGY METHOD 01/02/2025 11:16 AM EDT [facility] Basophils % 1 % LAB HEMATOLOGY METHOD 01/02/2025 11:16 AM EDT [facility] Immature Granulocytes % 1 % LAB HEMATOLOGY METHOD 01/02/2025 11:16 AM EDT [facility] Neutrophils Absolute 4.63 1.60 - 6.10 10*3/uL LAB HEMATOLOGY METHOD 01/02/2025 11:16 AM EDT [facility] Lymphocytes Absolute 1.89 1.20 - 3.90 10*3/uL LAB HEMATOLOGY METHOD 01/02/2025 11:16 AM EDT [facility] Monocytes Absolute 0.73 0.30 - 0.90 10*3/uL LAB HEMATOLOGY METHOD 01/02/2025 11:16 AM EDT [facility] Eosinophils Absolute 0.16 0.00 - 0.50 10*3/uL LAB HEMATOLOGY METHOD 01/02/2025 11:16 AM EDT [facility] Basophils Absolute 0.06 0.00 - 0.10 10*3/uL LAB HEMATOLOGY METHOD 01/02/2025 11:16 AM EDT [facility] Immature Granulocytes Absolute 0.06 0.00 - 0.06 10*3/uL LAB HEMATOLOGY METHOD 01/02/2025 11:16 AM EDT [facility] Blood Venous blood specimen / Unknown Venipuncture / Unknown 01/02/2025 7:43 AM EDT 01/02/2025 8:36 AM EDT Narrative [facility] - 01/02/2025 11:16 AM EDT Therapeutic decision making should be based on absolute values, rather than percentages. us Lewis Price MD LAB BLOOD ORDERABLES Fin al Result [facility] [address] [place] [id number] * Valproic acid level, total (01/02/2025 7:43 AM EDT) Only the most recent of3 resultswithin the time period is included. Valproic Acid 71 50 - 100 ug/mL 01/02/2025 11:13 AM EDT [facility] Blood Venous blood specimen / Unknown Venipuncture / Unknown 01/02/2025 7:43 AM EDT 01/02/2025 8:36 AM EDT Narrative [facility] - 01/02/2025 11:13 AM EDT Therapeutic: 50 to 100 ug/mL Supratherapeutic: >120 ug/mL us Lewis Price MD LAB BLOOD ORDERABLES Fin al Result [facility] [address] [place] [address] * (ABNORMAL) Comprehensive metabolic panel (01/02/2025 7:43 AM EDT) Only the most recent of3 resultswithin the time period is included. Glucose, Plasma 98 74 - 99 mg/dL 01/02/2025 11:44 AM EDT [facility] BUN, Plasma 14 8 - 23 mg/dL 01/02/2025 11:44 AM EDT [facility] Creatinine, Plasma 0.66 0.60 - 1.10 mg/dL 01/02/2025 11:44 AM EDT [facility] BUN/Creatinine Ratio 21 01/02/2025 11:44 AM EDT [facility] Sodium, Plasma 137 136 - 145 mmol/L 01/02/2025 11:44 AM EDT [facility] Potassium, Plasma 4.6 3.6 - 4.9 mmol/L 01/02/2025 11:44 AM EDT [facility] Chloride, Plasma 99 97 - 107 mmol/L 01/02/2025 11:44 AM EDT [facility] CO2, Plasma 26 22 - 29 mmol/L 01/02/2025 11:44 AM EDT [facility] Anion Gap 12 6 - 16 mmol/L 01/02/2025 11:44 AM EDT [facility] Total Calcium, Plasma 8.5(L) 8.9 - 10.2 mg/dL 01/02/2025 11:44 AM EDT [facility] Total Protein 6.1(L) 6.3 - 7.9 g/dL 01/02/2025 11:44 AM EDT [facility] Albumin, Plasma 4.0 3.5 - 5.2 g/dL 01/02/2025 11:44 AM EDT [facility] AST, Plasma 19 10 - 35 U/L 01/02/2025 11:44 AM EDT [facility] ALT, Plasma 13 10 - 35 U/L 01/02/2025 11:44 AM EDT [facility] Alkaline Phosphatase, Plasma 64 46 - 142 U/L 01/02/2025 11:44 AM EDT [facility] Total Bilirubin, Plasma 0.2 0.2 - 1.1 mg/dL 01/02/2025 11:44 AM EDT [facility] eGFRcr 93.3 mL/min/1.7 3m*2 01/02/2025 11:44 AM EDT [facility] Comment:Reported eGFRcr in m L/min/1.73m2 is based the CKD-EPI 2020 equation that does not use a race coefficient. Blood Venous blood specimen / Unknown Venipuncture / Unknown 01/02/2025 7:43 AM EDT 01/02/2025 8:36 AM EDT us Lewis Price MD LAB BLOOD ORDERABLES Fin al Result [facility] [address] [place] [address] * ECG Adult (Now - Performed in your clinic) (12/21/2024 2:01 PM EDT) EKG DIAGNOSIS CLASS Normal MUSE ECG Ventricular Rate 79 BPM MUSE ECG Atrial Rate 79 BPM MUSE ECG OH Interval 148 ms MUSE ECG QRSD Interval 84 ms MUSE ECG QT Interval 382 ms MUSE ECG QTC Interval 438 ms MUSE ECG P Yeso 60 degrees MUSE ECG R Yeso -35 degrees MUSE ECG T Wave Yeso 31 degrees MUSE ECG Diagnosis Normal sinus rhythm MUSE ECG Diagnosis Normal ECG MUSE ECG Diagnosis MUSE ECG Diagnosis Confirmed by Oskar Nelson ([id number]) on 12/24/2024 11:00:50 AM MUSE ECG 12/21/2024 2:01 PM EDT 12/24/2024 11:00 AM EDT us German Abarca MD ECG ORDERABLES Final Resul t MUSE ECG * CT Head wo IV Contrast (12/21/2024 [...] error, please notify the sender immediately at [phone] and permanently delete the original report and destroy any copies or printouts. Narrative 12/23/2024 8:22 AM EDT [facility] - Phone Outpatient NAME: Angie Keen DATE OF EXAM: 12/21/2024 Patient No: [id number] Physician: Tevin^German^iRdge Date of : 1950 Past Medical/Surgical History [...] (recent vs historical dx?), who presented to [facility] via EMS from [facility] ([facility]) with concerns of manic symptoms and altered mental status, and admitted 12/05/[address] [facility] for continued management of the same. They were subsequently admitted to [facility] 12/05/2024 on 72 hour hold for [...] Keen DATE OF EXAM: 12/21/2024 Patient No: [id number] Physician: Tevin^German^Ridge Date of : 1950 Past Medical/Surgical History (entered by technologist): Symptoms/Reason For Exam (entered by technologist): Dx: Bipolar disorder;Cognitive decline; Acute psychosis Tech Notes (entered by technologist): No contrast; Dx: Bipolar disorder;Cognitive decline; Acute psychosis. 12/10/24: 74 yo female with a PMHx ofCOPD and hyponatremia per tayla review, and reported psychiatric hx ofBPAD2 (recent vs historical dx?), who [facility] with concerns of manic symptoms and altered mentalstatus, and admitted 12/05/[address] [facility] for continued management of thesame. They were subsequently admitted to [facility] 12/05/2024 on 72 hour holdfor continued [...] in error, pleasenotify the sender immediately at [phone] and permanently delete theoriginal report and destroy any copies or printouts. us German Abarca MD IMG CT PROCEDURES Final Res ult * SEND JENNIFER MESSAGE (12/12/2024 8:00 AM EDT) Only the most recent of2 resultswithin the time period is included. Urine Urine specimen obtained by clean catch procedure / Unknown Non-blood Collection / Unknown 12/12/2024 8:00 AM EDT 12/12/2024 9:20 AM EDT Jennifer WHITLEY LAB URINE ORDERABLES Final Re sult Performing Organization Address City/[facility] Co de Phone Number [facility] [address] [place] [address] * Urine [place] Panel (12/12/2024 8:00 AM EDT) Only the most recent of2 resultswithin the time period is included. Extra Sent for Culture 12/12/2024 1:01 PM EDT [facility] Comment:Previously prelim ve rified as Specimen evaluation in progress on 12/12/2024 at 1201 EDT. Urine Urine specimen obtained by clean catch procedure / Unknown Non-blood Collection / Unknown 12/12/2024 8:00 AM EDT 12/12/2024 9:20 AM EDT Jennifer WHITLEY LAB URINE ORDERABLES Final Re sult Performing Organization Address City/State/[facility] Co de Phone Number [facility] [address] [place] [address] * Urinalysis Microscopic Examination (12/12/2024 8:00 AM EDT) Only the most recent of2 resultswithin the time period is included. Urine Urine specimen obtained by clean catch procedure / Unknown Non-blood Collection / Unknown 12/12/2024 8:00 AM EDT 12/12/2024 9:20 AM EDT us Jennifer WHITLEY LAB URINE ORDERABLES Final Re sult [facility] [address] [place] [address] * (ABNORMAL) Urinalysis with reflex microscopic (Culture NOT Included) (12/12/2024 8:00 AM EDT) Only the most recent of2 resultswithin the time period is included. Color, Urine Yellow LAB URINALYSIS - AUTOMATED METHOD 12/12/2024 12:14 PM EDT [facility] Clarity, Urine Cloudy LAB URINALYSIS - AUTOMATED METHOD 12/12/2024 12:14 PM EDT [facility] Spec [place], Urine 1.021 1.005 - 1.030 LAB URINALYSIS - AUTOMATED METHOD 12/12/2024 12:14 PM EDT [facility] pH, Urine 6.5 5.0 - 8.0 LAB URINALYSIS - AUTOMATED METHOD 12/12/2024 12:14 PM EDT [facility] Protein, Urine Trace(A) Negative mg/dL LAB URINALYSIS - AUTOMATED METHOD 12/12/2024 12:14 PM EDT [facility] Glucose, Urine Negative Negative mg/dL LAB URINALYSIS - AUTOMATED METHOD 12/12/2024 12:14 PM EDT [facility] Ketones, Urine 15(A) Negative mg/dL LAB URINALYSIS - AUTOMATED METHOD 12/12/2024 12:14 PM EDT [facility] Blood, Urine Negative Negative LAB URINALYSIS - AUTOMATED METHOD 12/12/2024 12:14 PM EDT [facility] Bilirubin, Urine Negative Negative LAB URINALYSIS - AUTOMATED METHOD 12/12/2024 12:14 PM EDT [facility] Urobilinogen, Urine 1.0 0.2 to 1.0 mg/dL LAB URINALYSIS - AUTOMATED METHOD 12/12/2024 12:14 PM EDT [facility] Leukocytes, Urine Moderate(A) Negative LAB URINALYSIS - AUTOMATED METHOD 12/12/2024 12:14 PM EDT [facility] Nitrite, Urine Negative Negative LAB URINALYSIS - AUTOMATED METHOD 12/12/2024 12:14 PM EDT [facility] RBC, Urine <1 0 to 3 /HPF 12/12/2024 12:14 PM EDT [facility] Comment:This result was prev iously suppressed from the chart. WBC, Urine 11 - 20(A) 0 to 5 /HPF 12/12/2024 12:14 PM EDT [facility] Comment:This result was prev iously suppressed from the chart. Squamous Epithelial Cells 11 - 20(A) 0 to 5 /HPF 12/12/2024 12:14 PM EDT [facility] Comment:This result was prev iously suppressed from the chart. Hyaline Casts 0 - 2 0 to 5 /LPF 12/12/2024 12:14 PM EDT [facility] Comment:This result was prev iously suppressed from the chart. Bacteria, Urine Present Negative 12/12/2024 12:14 PM EDT [facility] Comment:This result was prev iously suppressed from the chart. Calcium Oxalate Crystals Present Absent 12/12/2024 12:14 PM EDT [facility] Comment:This result was prev iously suppressed from the chart. Mucus Present 12/12/2024 12:14 PM EDT [facility] Comment:This result was prev iously suppressed from the chart. Urine Urine specimen obtained by clean catch procedure / Unknown Non-blood Collection / Unknown 12/12/2024 8:00 AM EDT 12/12/2024 9:20 AM EDT Narrative [facility] - 12/12/2024 12:14 PM EDT Performed by manual method us Jennifer WHITLEY LAB URINE ORDERABLES Final Re sult [facility] [address] [place] [address] * Urine Culture (12/12/2024 8:00 AM EDT) Only the most recent of2 resultswithin the time period is included. Culture 10,000 - 100,000 CFU/mL Mixed urogenital, fecal, or skin ge present. 12/13/2024 2:05 PM EDT [facility] Urine Urine specimen obtained by clean catch procedure / Unknown Non-blood Collection / Unknown 12/12/2024 8:00 AM EDT 12/12/2024 9:20 AM EDT us Jennifer WHITLEY LAB MICROBIOLOGY - GENERAL OR DERABLES Final Result Performing Organization Address [facility]/ZIP Co de Phone Number [facility] [address] [place] [address] * Methylmalonic acid, serum (12/11/2024 6:34 AM EDT) Methylmalonic Acid 88 50 - 400 nmol/L 12/14/2024 3:24 AM EDT [facility] Blood Venous blood specimen / Unknown Venipuncture / Unknown 12/11/2024 6:34 AM EDT 12/11/2024 8:20 AM EDT Narrative [facility] - 12/14/2024 3:24 AM EDT Test performed by LC-MS/MS at the [facility]. This test was developed and its performance characteristics determined by [facility]. It has not been cleared or approved by the FDA. The laboratory is regulated under CLIA as qualified to perform high-complexity testing. This test is used for clinical purposes. us Arvind Connell MD LAB BLOOD ORDERABLES Final Res ult [facility] [address] [place] [address] * Vitamin D 25 Hydroxy (12/11/2024 6:34 AM EDT) Vitamin D 25 Hydroxy 44.6 20.0 - 80.0 ng/mL 12/11/2024 10:49 AM EDT [facility] Blood Venous blood specimen / Unknown Venipuncture / Unknown 12/11/2024 6:34 AM EDT 12/11/2024 8:20 AM EDT Narrative [facility] - 12/11/2024 10:49 AM EDT Testing performed on [employer], standardized against NIST SRM [id number]. When testing [...] MD LAB BLOOD ORDERABLES Final Res ult [facility] [address] [place] [address] * Vitamin B1, Whole Blood (12/11/2024 6:34 AM EDT) Pathologist [facility] VITAMIN B1, WHOLE BLOOD 124 70 - 180 nmol/L 12/14/2024 5:56 AM EDT [facility] ([facility]) Blood Venous blood specimen / Unknown Venipuncture / Unknown 12/11/2024 6:34 AM EDT 12/11/2024 6:40 AM EDT Narrative [facility] (ELY) - 12/14/2024 5:56 AM EDT INTERPRETIVE INFORMATION: Vitamin B1, Whole Blood This assay measures the concentration of thiamine diphosphate (TDP), the primary active form of vitamin B1. Approximately 90 percent of vitamin B1 present in whole blood is TDP. Thiamine and thiamine monophosphate, which comprise the remaining 10 percent, are not measured. This test was developed and its performance characteristics determined by [facility]. It has not been cleared or approved by the US Food and Drug Administration. This test was performed in a CLIA certified laboratory and is intended for clinical purposes. Performed By: [facility] [address] [place] [id number] Test Hole Driller: Ernie Miranda MD, PhD CLIA Number: [id number] Arvind Connell MD LAB BLOOD ORDERABLES Final Res ult [facility] (ELY) [address] [place] [address] * Vitamin B12 (12/11/2024 6:34 AM EDT) Vitamin B12, Serum 263 210 - 1,033 pg/mL 12/11/2024 10:39 AM EDT [facility] Blood Venous blood specimen / Unknown Venipuncture / Unknown 12/11/2024 6:34 AM EDT 12/11/2024 8:20 AM EDT Arvind Connell MD LAB BLOOD ORDERABLES Final Res ult Performing Organization Address City/[facility]/ZIP Co de Phone Number [facility] [address] [place] [address] * Thyroid Stimulating Hormone, Plasma (12/05/2024 8:30 PM EDT) Thyroid Stimulating Hormone, Plasma 2.05 0.40 - 4.20 uIU/mL 12/05/2024 9:08 PM EDT [facility] Blood Venous blood specimen / Unknown Venipuncture / Unknown 12/05/2024 8:30 PM EDT 12/05/2024 8:34 PM EDT Result [facility] Abram Farfan APRN, DNP LAB BLOOD ORDERABLES Fi nal Result Performing Organization Address City/[facility]/ZIP Co de Phone Number [facility] [address] [place] [address] * Free T4, Plasma (12/05/2024 8:30 PM EDT) Free T4, Plasma 1.4 0.8 - 1.7 ng/dL 12/05/2024 9:06 PM EDT [facility] Blood Venous blood specimen / Unknown Venipuncture / Unknown 12/05/2024 8:30 PM EDT 12/05/2024 8:34 PM EDT Abram Farfan APRN, FABIAN LAB BLOOD ORDERABLES Fi nal Result Performing Organization Address City/[facility]/ZIP Co de Phone Number [facility] [address] [place] [address] * Phosphorus (12/05/2024 8:30 PM EDT) Phosphorus, Plasma 3.4 2.5 - 4.5 mg/dL 12/05/2024 9:08 PM EDT [facility] Blood Venous blood specimen / Unknown Venipuncture / Unknown 12/05/2024 8:30 PM EDT 12/05/2024 8:34 PM EDT us Abram Farfan APRN, FABIAN LAB BLOOD ORDERABLES Fi nal Result Performing Organization Address [facility] Co de Phone Number [facility] [address] [place] [address] * Magnesium (12/05/2024 8:30 PM EDT) Magnesium, Plasma 2.2 1.9 - 2.4 mg/dL 12/05/2024 9:08 PM EDT [facility] Blood Venous blood specimen / Unknown Venipuncture / Unknown 12/05/2024 8:30 PM EDT 12/05/2024 8:34 PM EDT us Abram Farfan APRN, FABIAN LAB BLOOD ORDERABLES Fi nal Result Performing Organization Address City/[facility] Co de Phone Number [facility] [address] [place] [address] * (ABNORMAL) Hemoglobin A1c (12/05/2024 8:30 PM EDT) Hemoglobin A1c 5.7(H) <5.7 % 12/06/2024 11:03 AM EDT [facility] Blood Venous blood specimen / Unknown Venipuncture / Unknown 12/05/2024 8:30 PM EDT 12/05/2024 8:34 PM EDT Narrative [facility] - 12/06/2024 11:03 AM EDT HA1C Interpretive Data: Diagnosis of Diabetes: Diabetic > or = 6.5% Pre-diabetic 5.7 to 6.4% Non-diabetic < or = 5.6% Glycemic Targets for Type I and Type II Diabetics: Non- Adults <7.0% Adults <6.0% Children and Adolescents <7.5% Source: [place] [employer]. Standards of medical care in diabetes,2017. Diabetes Care.2017:40 (suppl 1):S1-S135. Abram Farfan APRN, DNP LAB BLOOD ORDERABLES Fi nal Result [facility] [address] [place] [address] * Lipid panel (12/05/2024 8:30 PM EDT) [facility] Cholesterol, Plasma 181 <200 mg/dL 12/05/2024 9:08 PM EDT [facility] Comment: Cholesterol Reference Range (age >17 years): Desirable <200 mg/dL Borderline 200 to 239 mg/dL Undesirable >239 mg/dL HDL 79 >=50 mg/dL 12/05/2024 9:08 PM EDT [facility] Comment: HDL Cholesterol Reference Ranges (age >17 years): Female, acceptable > or = 50 mg/dL Male, acceptable > or = 40 mg/dL Triglycerides, Plasma 105 <150 mg/dL 12/05/2024 9:08 PM EDT [facility] Comment: Triglyceride Reference Range (age >17 years): Desirable: <150 mg/dL Borderline high: 150 to 199 mg/dL High: 200 to 499 mg/dL Very high: >499 mg/dL Increased risk of pancreatitis: >1000 mg/dL Cholesterol/HDL Ratio 2 12/05/2024 9:08 PM EDT [facility] LDL, Calculated 84 <100 mg/dL 9:08 PM EDT [facility] Comment: LDL Cholesterol Reference Range (age >17 years): Optimal: <100 mg/dL Near or above optimal: 100 - 129 mg/dL Borderline high: 130 - 159 mg/dL High: 160 - 189 mg/dL Very high: >189 mg/dL LDL Cholesterol Reference Range (age <18 years): Desirable: <110 mg/dL Borderline: 110 - 129 mg/dL Undesirable: >130 mg/dL LDL Cholesterol is calculated using the Arguello/NIH equation. Fasting greater than or equal to 12 hours? No 12/05/2024 9:08 PM EDT [facility] Blood Venous blood specimen / Unknown Venipuncture / Unknown 12/05/2024 8:30 PM EDT 12/05/2024 8:34 PM EDT Abram Farfan E MAIL SYSTEM ADMINISTRATOR, DNP LAB BLOOD ORDERABLES Fi nal Result Performing Organization Address City/[facility] Co de Phone Number [facility] [address] [place] [address] * Hepatitis B Surface Antigen - Empath (12/05/2024 11:56 AM EDT) Pathologist [facility] Hepatitis B Surf Antigen Negative Negative 12/05/2024 11:56 AM EDT [facility] Blood Venous blood specimen / Unknown 12/05/2024 8:59 AM EDT Lucia Mattson APRN LAB BLOOD ORDERABLES F inal Result Performing Organization Address [facility] Co de Phone Number [facility] [address] [place] [address] * HIV 1 & 2 Antibody/Antigen Screen (12/05/2024 10:58 AM EDT) [facility] HIV 1 & 2 Antibody/Antigen Screen Non Reactive Non Reactive 12/05/2024 10:58 AM EDT [facility] Comment:Screening for HIV 1 & 2 antibodies, and P24 antigen is NONREACTIVE. No confirmatory testing is required. Blood Venous blood specimen / Unknown 12/05/2024 8:59 AM EDT Lucia Mattson APRN LAB BLOOD ORDERABLES F inal Result Performing Organization Address [facility] Co de Phone Number [facility] [address] [place] [address] * Hepatitis C Antibody with Reflex to HCV Quant PCR - Empath (12/05/2024 10:57 AM EDT) Pathologist [facility] Hepatitis C Antibody Negative Negative 12/05/2024 10:57 AM EDT [facility] Blood Venous blood specimen / Unknown 12/05/2024 8:59 AM EDT Lucia Kelly Twila E MAIL SYSTEM ADMINISTRATOR LAB BLOOD ORDERABLES F inal Result [facility] [address] [place] [address] * COLONOSCOPY (11/06/2015) Anatomical Region Laterality Modality Endoscopy Narrative 11/06/2015 Ordered by an unspecified provider. us Historical Provider GI PROCEDURE ORDERABLES Vanita l Result from Last 3 Months or Most Recently Relevant to Health Maintenance Insurance [employer] MEDICARE Advance Directives * Full Code (Latest Code Status on File) Date Activated Date Inactivated Comments 12/05/2024 1:51 PM 12/10/2024 6:35 PM Question Answer Comments Patient has decision-making capacity? Yes Care Teams Results Technician Relationship Specialty Start Date End Date Pcp, No [address] [place] [address] PCP - General Family Medicine 12/05/24
--- OUTSIDE RECORDS SUMMARY | 2025-02-17 17:58 | XMS_ITS | Encounter Summary ---
Author Organization Healthcare Address [address] [place] [address] Care Team Providers Care Power Plant Supervisor Name Role Phone Pcp, No Primary Care Provider Unavailabl e Encounter Details Date Type Department Care Team (Late st Contact Info) Description 12/25/2024 Lab Requisition [facility] [address] [place] [address] Shailesh Slaughter DO [address] [place] [address] Routine general medical examination at [...] How often do you attend chur or church services? Patient unable to answer 12/05/2024 Do you belong to any clubs o r organizations such as samaritan groups, unions, fraternal or athletic groups, or [...] one occasion? Patient unable to answer 12/05/2024 [facility] - Occupational Stress Questionnaire Answer Date [...] were you homeless or living in a detention (including now)? Patient unable to answer 12/05/2024 [...] Procedure Name Priority Date/Time Associated Diagnosis Comments VALPROIC ACID LEVEL, TOTAL Routine 12/25/2024 6:40 AM EDT Routine general medical examination at a health care facility CBC WITH AUTO DIFFERENTIAL Routine 12/25/2024 6:00 AM EDT Routine general medical examination at a health care facility documented in this encounter Results * Valproic acid level, total (12/25/2024 6:40 AM EDT) Valproic Acid 53 50 - 100 ug/mL 12/25/2024 3:25 PM EDT [facility] Blood Venous blood specimen / Unknown Venipuncture / Unknown 12/25/2024 6:40 AM EDT 12/25/2024 6:41 AM EDT Narrative [facility] - 12/25/2024 3:25 PM EDT Therapeutic: 50 to 100 ug/mL Supratherapeutic: >120 ug/mL us Shailesh Slaughter DO LAB BLOOD ORDERABLES Final Result [facility] [address] [place] [address] * CBC and Differential (12/25/2024 6:00 AM EDT) WBC Count 7.27 3.70 - 10.30 10*3/uL LAB HEMATOLOGY METHOD 12/25/2024 12:19 PM EDT [facility] RBC Count 4.29 3.90 - 5.20 10*6/uL LAB HEMATOLOGY METHOD 12/25/2024 12:19 PM EDT [facility] HGB 13.0 11.2 - 15.7 g/dL LAB HEMATOLOGY METHOD 12/25/2024 12:19 PM EDT [facility] HCT 40.8 34.0 - 45.0 % LAB HEMATOLOGY METHOD 12/25/2024 12:19 PM EDT [facility] Platelet Count 256 155 - 369 10*3/uL LAB HEMATOLOGY METHOD 12/25/2024 12:19 PM EDT [facility] MCV 95 79 - 98 fL LAB HEMATOLOGY METHOD 12/25/2024 12:19 PM EDT [facility] MCH 30.3 26.0 - 32.0 pg LAB HEMATOLOGY METHOD 12/25/2024 12:19 PM EDT [facility] MCHC 31.9 30.7 - 35.5 g/dL LAB HEMATOLOGY METHOD 12/25/2024 12:19 PM EDT [facility] RDW 13.2 11.5 - 14.5 % LAB HEMATOLOGY METHOD 12/25/2024 12:19 PM EDT [facility] MPV 10.7 8.8 - 12.5 fL LAB HEMATOLOGY METHOD 12/25/2024 12:19 PM EDT [facility] nRBC 0.0 <=0.0 per 100 WBCs LAB HEMATOLOGY METHOD 12/25/2024 12:19 PM EDT [facility] Differential Type Automated LAB HEMATOLOGY METHOD 12/25/2024 12:19 PM EDT [facility] Neutrophils % 53 % LAB HEMATOLOGY METHOD 12/25/2024 12:19 PM EDT [facility] Lymphocytes % 33 % LAB HEMATOLOGY METHOD 12/25/2024 12:19 PM EDT [facility] Monocytes % 10 % LAB HEMATOLOGY METHOD 12/25/2024 12:19 PM EDT [facility] Eosinophils % 2 % LAB HEMATOLOGY METHOD 12/25/2024 12:19 PM EDT [facility] Basophils % 1 % LAB HEMATOLOGY METHOD 12/25/2024 12:19 PM EDT [facility] Immature Granulocytes % 1 % LAB HEMATOLOGY METHOD 12/25/2024 12:19 PM EDT [facility] Neutrophils Absolute 3.91 1.60 - 6.10 10*3/uL LAB HEMATOLOGY METHOD 12/25/2024 12:19 PM EDT [facility] Lymphocytes Absolute 2.39 1.20 - 3.90 10*3/uL LAB HEMATOLOGY METHOD 12/25/2024 12:19 PM EDT [facility] Monocytes Absolute 0.71 0.30 - 0.90 10*3/uL LAB HEMATOLOGY METHOD 12/25/2024 12:19 PM EDT [facility] Eosinophils Absolute 0.15 0.00 - 0.50 10*3/uL LAB HEMATOLOGY METHOD 12/25/2024 12:19 PM EDT [facility] Basophils Absolute 0.06 0.00 - 0.10 10*3/uL LAB HEMATOLOGY METHOD 12/25/2024 12:19 PM EDT [facility] Immature Granulocytes Absolute 0.05 0.00 - 0.06 10*3/uL LAB HEMATOLOGY METHOD 12/25/2024 12:19 PM EDT [facility] Blood Venous blood specimen / Unknown Venipuncture / Unknown 12/25/2024 6:00 AM EDT 12/25/2024 6:41 AM EDT Narrative [facility] - 12/25/2024 12:19 PM EDT Therapeutic decision making should be based on absolute values, rather than percentages. Shailesh Slaughter DO LAB BLOOD ORDERABLES Final Result [facility] [address] [place] [address] documented in this encounter Visit Diagnoses Diagnosis Routine general medical examination at a health care facility documented in this encounter Care Teams Power Plant Supervisor Relationship Specialty Start Date End Date Pcp, Valeria [address] [place] [address] PCP - General Family Medicine 12/05/24 documented as of this encounter
--- OUTSIDE RECORDS SUMMARY | 2025-02-17 17:58 | XMS_ITS | Encounter Summary ---
Author Organization Healthcare Address [address] [place] [address] Care Team Providers Care Dining Car Waiter/Waitress Name Role Phone Pcp, No Primary Care Provider Unavailabl e Encounter Details Date Type Department Care Team (Latest Contact Info) Description 12/21/2024 Travel Social History Tobacco Use Types Packs/Day Years [...] answer 12/05/2024 How [facility] attend [facility] or [facility] services? Patient unable to answer 12/05/2024 Do you belong to any clubs o r organizations such as tenriism groups, unions, fraternal or athletic groups, or [...] one occasion? Patient unable to answer 12/05/2024 [facility] - Occupational [...] were you homeless or living in a fci (including now)? Patient unable to answer 12/05/2024 [...] Recorded In the past 12 months has [employer] electric, gas, oil, or water company threatened [...] documented as of this encounter Visit Diagnoses Not on filedocumented in this encounter Care Teams Dining Car Waiter/Waitress Relationship Specialty Start Date End Date Pcp, [place] [address] PCP - General Family Medicine 12/05/24 documented as of this encounter
--- NOTE | 2025-02-17 18:15 | CT_ITS ---
PROCEDURE INFORMATION: Exam: CT Chest With Contrast; Diagnostic Exam date and time: 02/17/2025 7:37 PM Age: 74 years old Clinical indication: Other: Right breast pain TECHNIQUE: Imaging protocol: Diagnostic computed tomography of the chest with contrast. Radiation optimization: All CT scans at this facility use at least one of these dose optimization techniques: automated exposure control; mA and/or kV adjustment per patient size (includes targeted exams where dose is matched to clinical indication); or iterative reconstruction. Contrast material: ISOVUE; Contrast volume: 75 ml; Contrast route: IV; COMPARISON: No relevant prior studies available. FINDINGS: Lungs: There are moderate centrilobular emphysematous changes of the lungs with an apical gradient. Dependent bilateral lung base opacities favor atelectasis. Pleural spaces: Unremarkable. No pneumothorax. No pleural effusion. Heart: Unremarkable. No cardiomegaly. No pericardial effusion. Coronary arteries: Moderate three-vessel calcific atherosclerotic disease of the coronary arteries. Lymph nodes: Unremarkable. No enlarged lymph nodes. Vasculature: There is moderate calcific atherosclerotic disease of the thoracic aorta without aneurysmal dilatation. Bones/joints: Unremarkable. No acute fracture. Soft tissues: Unremarkable. IMPRESSION: No acute findings. COMMENTS: The presence of pulmonary emphysema on CT is an independent risk factor for lung cancer. In the absence of a history or active diagnosis of lung cancer, it is recommended that this patient with emphysema be evaluated for enrollment in a low dose CT lung cancer screening program.
--- NOTE | 2025-02-17 18:21 | ED_ITS ---
Discharge Plan Disposition Chief Complaint: PAIN Referrals Follow up/Referrals: Provider,Referral, [Primary Care Provider, Medical] - See instructions Print Language Print Language: Macanese Discharge ED Provider: Stalin Dunn General Adult HPI <Mariangel Garcia (ED), FIELD OPERATIONS FARM MANAGER - Last Filed: 02/17/25 21:34> General Chief complaint: PAIN Stated complaint: Breast Pain Time Seen by Provider: 02/17/25 17:50 Mode of Arrival: EMS Source of Information: Patient and EMS Description of Symptoms (Recalled from ER Triage Doc. by RN): PATIENT PRESENTS TO ED FOR RIGHT BREAST PAIN SINCE OCTOBER THIS YEAR. PT LIVES AT THE [facility] AND REPORTS SHE HAS BEEN TRYING TO GET SOMEONE TO GET HER WORKED UP FOR THIS PAIN, BUT NO ONE WILL CALL FOR HER. STATES THE PAIN STARTED IN THE RIGHT AXILLA OVER THE LAST MONTH. History of Present Illness HPI narrative: 74-year-old female presents to the ED today for complaint of right breast pain near her nipple. She also has pain in her right axilla. She does live at [place] and reports that she has been trying to get someone to take her for a mammogram but she keeps missing her appointment. She is very concerned about this pain and thinks she has breast cancer. She has no fevers or chills. No nausea, vomiting or diarrhea. No weight loss or night sweats. Related Data Allergies Allergy/AdvReac Type Severity Reaction Status Date / Time SULFA (SULFONAMIDE) Allergy Intermediate Uncoded 05/03/17 14:04 ASPIRIN Allergy Unknown Uncoded 05/03/17 14:04 PFSH <Mariangel Garcia (ED), FIELD OPERATIONS FARM MANAGER - Last Filed: 02/17/25 21:34> [facility] Disclaimer: The information contained in this section may have been updated after the patient was seen, as this information can be updated by other users. Social History (Updated 02/17/25 @ 17:35 by Celeste De La Torre RN) Smoking Status: Current every day smoker alcohol intake: never current occupational status: other Travel in the last 8 weeks?: None Have you lived/traveled outside US in past 30 days?: No Contact w/someone who lives/traveled outside US past 30 days?: No Exposure to someone with infectious disease in past 14 days?: No Do you have a fever (greater than 100.4 F or 38 C)?: No Have you tested positive for COVID-19?: No Exposed to someone with COVID-19 in past 14 days?: No Do you have a sore throat?: No Do you have a cough?: No Do you have any weakness?: No Do you have any diarrhea?: No Are you experiencing any unusual bleeding?: No Do you have any muscle aches/pain?: No Do you have any abdominal pain?: No Are you experiencing loss of taste or smell?: No <Mariangel Garcia (ED), FIELD OPERATIONS FARM MANAGER - Last Filed: 02/17/25 21:34> ROS Obtained: Yes Systems reviewed as appropriate & no additional complaints except as documented Constitutional Constitutional: Reports as per HPI Physical Exam <Mariangel Garcia (ED), FIELD OPERATIONS FARM MANAGER - Last Filed: 02/17/25 21:34> General General appearance: alert and in no apparent distress Head Head exam: normocephalic Eye Eye exam: Present PERRL and EOMI ENT ENT exam: Present normal oropharynx and mucous membranes moist Neck Neck exam: Present full ROM and trachea midline Chest Chest inspection: Present tenderness (right breast near her nipple, no redness or swelling. right axilla tenderness ) Respiratory Respiratory exam: Present normal lung sounds bilaterally Cardiovascular Cardiovascular exam: Present regular rate, normal rhythm, normal heart sounds, +S1 and +S2 Extremities Exam Extremities exam: Present full ROM and normal capillary refill Neurological Exam Neurological exam: Present alert and oriented X3 Skin Skin exam: Present warm, dry and intact Lymphatic Lymphatic Findings: R axilla node tender Medical Decision Making <Mariangel Garcia (ED), FIELD OPERATIONS FARM MANAGER - Last Filed: 02/17/25 21:34> Medical Records Screening: Per USPSTF and CDC recommendations, given the prevalence of disease in our region, it is our hospital?s policy to screen for HIV and viral Hepatitis for all patients aged 18 and over and those with ongoing risk factors. Phi Inquiry Pt receiving controlled substance: No Phi was queried for this patient: No Vital Signs: 02/17/25 17:34 02/17/25 17:34 02/17/25 18:00 Temperature 99.3 F 99.3 F Temperature Source Oral Pulse Rate 80 76 Pulse Rate [Right] 80 Respiratory Rate 16 16 Blood Pressure 170/78 H 162/74 H Blood Pressure [Right Arm] 170/78 H Blood Pressure Mean Blood Pressure Mean [Right Arm] 108 02 Sat by Pulse Oximetry 99 99 97 Oxygen Delivery Method Room Air 02/17/25 18:30 02/17/25 19:00 02/17/25 19:30 Temperature Temperature Source Pulse Rate 75 75 72 Pulse Rate [Right] Respiratory Rate Blood Pressure 156/76 H 155/75 H 153/70 H Blood Pressure [Right Arm] Blood Pressure Mean 101 97 Blood Pressure Mean [Right Arm] 02 Sat by Pulse Oximetry 98 96 96 Oxygen Delivery Method Room Air 02/17/25 20:00 Temperature Temperature Source Pulse Rate 72 Pulse Rate [Right] Respiratory Rate Blood Pressure 160/70 H Blood Pressure [Right Arm] Blood Pressure Mean 100 Blood Pressure Mean [Right Arm] 02 Sat by Pulse Oximetry 98 Oxygen Delivery Method Lab Data Lab Results 02/17/25 18:25: WBC 7.1, RBC 4.07 L, Hgb 12.6, Hct 38.0, MCV 93.4, MCH 31.0, MCHC 33.2, RDW 12.8, Plt Count 195, MPV 8.9, Neut % (Auto) 55.4, Lymph % (Auto) 28.2, Ripley % (Auto) 10.7 H, Eos % (Auto) 3.8, Baso % (Auto) 1.1, Neut # (Auto) 3.9, Lymph # (Auto) 2.0, Ripley # (Auto) 0.8, Eos # (Auto) 0.3, Baso # (Auto) 0.1, Sodium 131 L, Potassium 4.2, Chloride 96 L, Carbon Dioxide 29, Anion Gap 10.2, BUN 17, Creatinine 0.70, Estimated Creat Clear 64, Estimated GFR 82, Est GFR ( Amer) 100, Glucose 109 H, Calcium 8.6, Magnesium 1.9, Total Bilirubin 0.3, AST 20, ALT 17, Alkaline Phosphatase 89, Total Protein 5.6 L, Albumin 3.6, Globulin 2.0, Albumin/Globulin Ratio 1.8, Lipase 106 02/17/25 18:25 02/17/25 18:25 Orders (Tests/Meds): ED MEDICATIONS Generic Name Dose Route Start Last Admin Trade Name Freq PRN Reason Stop Dose Admin Sodium Chloride 10 ml 02/17/25 19:50 02/17/25 19:51 Sodium Chloride 0.9% 10ml Syr (Rad Only) IV 03/19/25 19:49 10 ml NEEDED PRN Administration Maintain IV Site Discontinued Medications Generic Name Dose Route Start Last Admin Trade Name Jl PRN Reason Stop Dose Admin Iopamidol 75 ml 02/17/25 19:50 02/17/25 19:51 Iopamidol-370 (76%);100ml Bottle IV 02/17/25 19:51 75 ml ONCE ONE Administration ORDERS Category Date Time Status CT chest w con Stat Cat Scan 02/17/25 18:15 Completed CBC [Complete Blood Count Auto Diff] Stat Lab 02/17/25 18:25 Completed Comprehensive Metabolic Panel Stat Lab 02/17/25 18:25 Completed Lipase Stat Lab 02/17/25 18:25 Completed Magnesium Stat Lab 02/17/25 18:25 Completed Medical Decision Narrative: patient is a 74-year-old female presenting to the emergency department for evaluation of right breast tenderness at the nipple and right axilla tenderness. Patient is hemodynamically stable and nontoxic-appearing upon arrival, afebrile. Differential diagnosis includes cellulitis, abscess, breast CA, among others. Workup will be conducted with hematologic labs, specific imaging. CT showed nothing acute. Patient will need to get a mammogram which is scheduled already for the . Patient will be safe for discharge home. <Stalin Dunn MD - Last Filed: 02/17/25 21:41> Vital Signs: 02/17/25 17:34 02/17/25 17:34 02/17/25 18:00 Temperature 99.3 F 99.3 F Temperature Source Oral Pulse Rate 80 76 Pulse Rate [Right] 80 Respiratory Rate 16 16 Blood Pressure 170/78 H 162/74 H Blood Pressure [Right Arm] 170/78 H Blood Pressure Mean Blood Pressure Mean [Right Arm] 108 02 Sat by Pulse Oximetry 99 99 97 Oxygen Delivery Method Room Air 02/17/25 18:30 02/17/25 19:00 02/17/25 19:30 Temperature Temperature Source Pulse Rate 75 75 72 Pulse Rate [Right] Respiratory Rate Blood Pressure 156/76 H 155/75 H 153/70 H Blood Pressure [Right Arm] Blood Pressure Mean 101 97 Blood Pressure Mean [Right Arm] 02 Sat by Pulse Oximetry 98 96 96 Oxygen Delivery Method Room Air 02/17/25 20:00 Temperature Temperature Source Pulse Rate 72 Pulse Rate [Right] Respiratory Rate Blood Pressure 160/70 H Blood Pressure [Right Arm] Blood Pressure Mean 100 Blood Pressure Mean [Right Arm] 02 Sat by Pulse Oximetry 98 Oxygen Delivery Method Lab Data Lab Results 02/17/25 18:25: WBC 7.1, RBC 4.07 L, Hgb 12.6, Hct 38.0, MCV 93.4, MCH 31.0, MCHC 33.2, RDW 12.8, Plt Count 195, MPV 8.9, Neut % (Auto) 55.4, Lymph % (Auto) 28.2, Ripley % (Auto) 10.7 H, Eos % (Auto) 3.8, Baso % (Auto) 1.1, Neut # (Auto) 3.9, Lymph # (Auto) 2.0, Ripley # (Auto) 0.8, Eos # (Auto) 0.3, Baso # (Auto) 0.1, Sodium 131 L, Potassium 4.2, Chloride 96 L, Carbon Dioxide 29, Anion Gap 10.2, BUN 17, Creatinine 0.70, Estimated Creat Clear 64, Estimated GFR 82, Est GFR ( Amer) 100, Glucose 109 H, Calcium 8.6, Magnesium 1.9, Total Bilirubin 0.3, AST 20, ALT 17, Alkaline Phosphatase 89, Total Protein 5.6 L, Albumin 3.6, Globulin 2.0, Albumin/Globulin Ratio 1.8, Lipase 106 Orders (Tests/Meds): ED MEDICATIONS Generic Name Dose Route Start Last Admin Trade Name Freq PRN Reason Stop Dose Admin Sodium Chloride 10 ml 02/17/25 19:50 02/17/25 19:51 Sodium Chloride 0.9% 10ml Syr (Rad Only) IV 03/19/25 19:49 10 ml NEEDED PRN Administration Maintain IV Site Discontinued Medications Generic Name Dose Route Start Last Admin Trade Name Freq PRN Reason Stop Dose Admin Iopamidol 75 ml 02/17/25 19:50 02/17/25 19:51 Iopamidol-370 (76%);100ml Bottle IV 02/17/25 19:51 75 ml ONCE ONE Administration ORDERS Category Date Time Status CT chest w con Stat Cat Scan 02/17/25 18:15 Completed CBC [Complete Blood Count Auto Diff] Stat Lab 02/17/25 18:25 Completed Comprehensive Metabolic Panel Stat Lab 02/17/25 18:25 Completed Lipase Stat Lab 02/17/25 18:25 Completed Magnesium Stat Lab 02/17/25 18:25 Completed Medical Decision Narrative: patient is a 74-year-old female presenting to the emergency department for evaluation of right breast tenderness at the nipple and right axilla tenderness. Patient is hemodynamically stable and nontoxic-appearing upon arrival, afebrile. Differential diagnosis includes cellulitis, abscess, breast CA, among others. Workup will be conducted with hematologic labs, specific imaging. CT showed nothing acute. Patient will need to get a mammogram which is scheduled already for the . Patient will be safe for discharge home. Stalin Dunn: I was consulted by the ABE[facility], and we discussed the complexity of the problems being addressed. I approved the treatment and management plan for this patient's care in the emergency department, thus performing a substantive portion of the medical decision making. Critical Care <Mariangel Garcia (ED), FIELD OPERATIONS FARM MANAGER - Last Filed: 02/17/25 21:34> Critical Care Time Critical Care Time: No
[2025-02-17 18:38] LABS: Hematocrit 38.0 % (37.0-47.0); Hemoglobin 12.6 g/dL (12.2-16.2); Immature Granulocytes % 0.8 %; Mean Corpuscular HGB Conc 33.2 g/dL (31.8-35.4); Mean Corpuscular Hemoglobin 31.0 pg (27.0-31.2); Mean Corpuscular Volume 93.4 fl (81-99); Nucleated Red Blood Cells % 0 %; Platelet Count 195 K/mm3 (142-424); Red Blood Count 4.07 M/mm3 (4.20-5.40); Red Cell Distribution Width-SD 43.8 fL; White Blood Count 7.1 K/mm3 (4.8-10.8)
[2025-02-17 19:02] LABS: Alanine Aminotransferase 17 U/L (12-78); Albumin Level 3.6 g/dl (3.5-5.0); Albumin/Globulin Ratio 1.8 (1.1-1.8); Alkaline Phosphatase 89 U/L (38-126); Anion Gap 10.2 mEq/L (5-15); Aspartate Amino Transferase 20 U/L (14-36); Bilirubin,Total 0.3 mg/dl (0.2-1.3); Blood Urea Nitrogen 17 mg/dl (7-17); Calcium 8.6 mg/dl (8.4-10.2); Carbon Dioxide 29 mmol/L (22.0-30.0); Chloride 96 mmol/L (98-107); Creatinine Clearance Estimated 64 mL/min (50-200); Creatinine,Serum 0.70 mg/dl (0.52-1.04); Estimated Glomerular Filt Rate 82 ml/min (>60); GFR (African American) 100 ML/MIN (>60); Globulin 2.0 g/dL (1.3-3.2); Glucose 109 mg/dl (74-100); Lipase 106 U/L (23-300); Magnesium 1.9 mg/dl (1.6-2.3); Potassium 4.2 mmoL/L (3.5-5.1); Sodium 131 mmol/L (136-145); Total Protein,Serum 5.6 g/dl (6.3-8.2)
[2025-02-17] MEDS: IOPAMIDOL-370 (76%);100ML BOTTLE 75 ML IV (19:51)
[2025-02-17] MEDS: SODIUM CHLORIDE 0.9% 10ML SYR (RAD ONLY) 10 ML IV (19:51)
== END 2025-02-17 22:29 | disposition home or self-care (01) ==
PROVIDERS: Nurse Practitioner; Emergency Provider Emergency Medicine
DX: N64.4 Mastodynia (principal); F17.210 Nicotine dependence, cigarettes, uncomplicated
CPT/HCPCS: 71260; 80053; 83690; 83735; 85025; 99284; Q9967

== ENCOUNTER 2025-02-25 10:38 | Outpatient (CLI) | payer MEDICARE, MEDICAID, SELFPAY ==
--- OUTSIDE RECORDS SUMMARY | 2025-02-25 10:53 | XMS_ITS | Encounter Summary ---
Author Organization Healthcare Address [address] [place] [address] Care Team Providers Care Cultural Centre Manager Name Role Phone Pcp, No Primary Care Provider Unavailabl e Encounter Details Date Type Department Care Team (Late st Contact Info) Description 01/02/2025 Lab Requisition [facility] [address] [place] [address] Lewis Price MD [address] [place], [place] [id number] Routine general medical examination at a health [...] How often do you attend chur or voodoo services? Patient unable to answer 12/05/2024 Do you belong to any clubs o r organizations such as mormon groups, unions, fraternal or athletic groups, or [...] one occasion? Patient unable to answer 12/05/2024 [facility] - Occupational Stress Questionnaire Answer [...] were you homeless or living in a long term (including now)? Patient unable to answer 12/05/2024 [...] - 99 mg/dL 01/02/2025 11:44 AM EDT [facility] BUN, Plasma 14 8 - 23 mg/dL 01/02/2025 11:44 AM EDT [facility] Creatinine, Plasma 0.66 0.60 - 1.10 mg/dL 01/02/2025 11:44 AM EDT [facility] BUN/Creatinine Ratio 21 01/02/2025 11:44 AM EDT [facility] Sodium, Plasma 137 136 - 145 mmol/L 01/02/2025 11:44 AM T [facility] Potassium, Plasma 4.6 3.6 - 4.9 mmol/L 01/02/2025 11:44 AM [facility] Chloride, Plasma 99 97 - 107 mmol/L 01/02/2025 11:44 AM T [facility] CO2, Plasma 26 22 - 29 mmol/L 01/02/2025 11:44 AM T [facility] Anion Gap 12 6 - 16 mmol/L 01/02/2025 11:44 AM T [facility] Total Calcium, Plasma 8.5(L) 8.9 - 10.2 mg/dL 01/02/2025 11:44 AM [facility] Total Protein 6.1(L) 6.3 - 7.9 g/dL 01/02/2025 11:44 AM [facility] Albumin, Plasma 4.0 3.5 - 5.2 g/dL 01/02/2025 11:44 AM T [facility] AST, Plasma 19 10 - 35 U/L 01/02/2025 11:44 AM [facility] ALT, Plasma 13 10 - 35 U/L 01/02/2025 11:44 AM [facility] Alkaline Phosphatase, Plasma 64 46 - 142 U/L 01/02/2025 11:44 AM [facility] Total Bilirubin, Plasma 0.2 0.2 - 1.1 mg/dL 01/02/2025 11:44 AM [facility] eGFRcr 93.3 mL/min/1.7 3m*2 01/02/2025 11:44 AM [facility] Comment:Reported eGFRcr in m L/min/1.73m2 is based the CKD-EPI 2020 equation that does not use a race coefficient. Blood Venous blood specimen / Unknown Venipuncture / Unknown 01/02/2025 7:43 AM EDT 01/02/2025 8:36 AM EDT us Lewis Price MD LAB BLOOD ORDERABLES Fin al Result [facility] [address] [place] [address] * CBC and Differential (01/02/2025 7:43 AM EDT) WBC Count 7.53 3.70 - 10.30 10*3/uL LAB HEMATOLOGY METHOD 01/02/2025 11:16 AM EDT [facility] RBC Count 4.14 3.90 - 5.20 10*6/uL LAB HEMATOLOGY METHOD 01/02/2025 11:16 AM EDT [facility] HGB 12.5 11.2 - 15.7 g/dL LAB HEMATOLOGY METHOD 01/02/2025 11:16 AM EDT [facility] HCT 39.3 34.0 - 45.0 % LAB HEMATOLOGY METHOD 01/02/2025 11:16 AM EDT [facility] Platelet Count 294 155 - 369 10*3/uL LAB HEMATOLOGY METHOD 01/02/2025 11:16 AM EDT [facility] MCV 95 79 - 98 fL LAB HEMATOLOGY METHOD 01/02/2025 11:16 AM EDT [facility] MCH 30.2 26.0 - 32.0 pg LAB HEMATOLOGY METHOD 01/02/2025 11:16 AM EDT [facility] MCHC 31.8 30.7 - 35.5 g/dL LAB HEMATOLOGY METHOD 01/02/2025 11:16 AM EDT [facility] RDW 13.3 11.5 - 14.5 % LAB HEMATOLOGY METHOD 01/02/2025 11:16 AM EDT [facility] MPV 10.0 8.8 - 12.5 fL LAB HEMATOLOGY METHOD 01/02/2025 11:16 AM EDT [facility] nRBC 0.0 <=0.0 per 100 WBCs LAB HEMATOLOGY METHOD 01/02/2025 11:16 AM EDT [facility] Differential Type Automated LAB HEMATOLOGY METHOD 01/02/2025 11:16 AM EDT [facility] Neutrophils % 61 % LAB HEMATOLOGY METHOD 01/02/2025 11:16 AM EDT [facility] Lymphocytes % 25 % LAB HEMATOLOGY METHOD 01/02/2025 11:16 AM EDT [facility] Monocytes % 10 % LAB HEMATOLOGY METHOD 01/02/2025 11:16 AM EDT [facility] Eosinophils % 2 % LAB HEMATOLOGY METHOD 01/02/2025 11:16 AM EDT [facility] Basophils % 1 % LAB HEMATOLOGY METHOD 01/02/2025 11:16 AM EDT [facility] Immature Granulocytes % 1 % LAB HEMATOLOGY METHOD 01/02/2025 11:16 AM EDT [facility] Neutrophils Absolute 4.63 1.60 - 6.10 10*3/uL LAB HEMATOLOGY METHOD 01/02/2025 11:16 AM EDT [facility] Lymphocytes Absolute 1.89 1.20 - 3.90 10*3/uL LAB HEMATOLOGY METHOD 01/02/2025 11:16 AM EDT [facility] Monocytes Absolute 0.73 0.30 - 0.90 10*3/uL LAB HEMATOLOGY METHOD 01/02/2025 11:16 AM EDT [facility] Eosinophils Absolute 0.16 0.00 - 0.50 10*3/uL LAB HEMATOLOGY METHOD 01/02/2025 11:16 AM EDT [facility] Basophils Absolute 0.06 0.00 - 0.10 10*3/uL LAB HEMATOLOGY METHOD 01/02/2025 11:16 AM EDT [facility] Immature Granulocytes Absolute 0.06 0.00 - 0.06 10*3/uL LAB HEMATOLOGY METHOD 01/02/2025 11:16 AM EDT [facility] Blood Venous blood specimen / Unknown Venipuncture / Unknown 01/02/2025 7:43 AM EDT 01/02/2025 8:36 AM EDT Narrative [facility] - 01/02/2025 11:16 AM EDT Therapeutic decision making should be based on absolute values, rather than percentages. us Lewis Price MD LAB BLOOD ORDERABLES Fin al Result [facility] [address] [place] [id number] * Valproic acid level, total (01/02/2025 7:43 AM EDT) Valproic Acid 71 50 - 100 ug/mL 01/02/2025 11:13 AM EDT [facility] Blood Venous blood specimen / Unknown Venipuncture / Unknown 01/02/2025 7:43 AM EDT 01/02/2025 8:36 AM EDT Narrative [facility] - 01/02/2025 11:13 AM EDT Therapeutic: 50 to 100 ug/mL Supratherapeutic: >120 ug/mL us Lewis Price MD LAB BLOOD ORDERABLES Fin al Result [facility] [address] [place] [address] documented in this encounter Visit Diagnoses Diagnosis Routine general medical examination at a health care facility documented in this encounter Care Teams Cultural Centre Manager Relationship Specialty Start Date End Date Pcp, No [address] [place] [address] PCP - General Family Medicine 12/05/24 documented as of this encounter
--- OUTSIDE RECORDS SUMMARY | 2025-02-25 10:53 | XMS_ITS | Encounter Summary ---
Author Organization Healthcare Address [address] [id number] Care Team Providers Care Process Controller Name Role Phone Pcp, No Primary Care Provider Unavailabl e Encounter Details Date Type Department Care Team (Late st Contact Info) Description 12/11/2024 Lab Requisition [facility] [address] [place] [address] Arvind Connell MD [address] [phone] Routine general medical examination at a health [...] How often do you attend chur or anabaptist services? Patient unable to answer 12/05/2024 Do you belong to any clubs o r organizations such as worship groups, unions, fraternal or athletic groups, or [...] one occasion? Patient unable to answer 12/05/2024 [facility] - Occupational Stress Questionnaire Answer Date [...] any time in the past [address] [facility], were you homeless or living [...] - 80.0 ng/mL 12/11/2024 10:49 AM EDT [facility] Blood Venous blood specimen / Unknown Venipuncture / Unknown 12/11/2024 6:34 AM EDT 12/11/2024 8:20 AM EDT Narrative [facility] - 12/11/2024 10:49 AM EDT Testing performed on [address] Administrative Engineer, standardized against NIST SRM [id number]. When testing [...] ORDERABLES Final Res ult Performing Organization Address [facility] Co de Phone Number [facility] [address] [place] [address] * Methylmalonic acid, serum (12/11/2024 6:34 AM EDT) Methylmalonic Acid 88 50 - 400 nmol/L 12/14/2024 3:24 AM EDT [facility] Blood Venous blood specimen / Unknown Venipuncture / Unknown 12/11/2024 6:34 AM EDT 12/11/2024 8:20 AM EDT Narrative [facility] - 12/14/2024 3:24 AM EDT Test performed by LC-MS/MS at the [facility]. This test was developed and its performance characteristics determined by [facility]. It has not been cleared or approved by the FDA. The laboratory is regulated under CLIA as qualified to perform high-complexity testing. This test is used for clinical purposes. Arvind Connell MD LAB BLOOD ORDERABLES Final Res ult [facility] [address] [place] [address] * Vitamin B1, Whole Blood (12/11/2024 6:34 AM EDT) VITAMIN B1, WHOLE BLOOD 124 70 - 180 nmol/L 12/14/2024 5:56 AM EDT [facility] Blood Venous blood specimen / Unknown Venipuncture / Unknown 12/11/2024 6:34 AM EDT 12/11/2024 6:40 AM EDT Narrative [facility] - 12/14/2024 5:56 AM EDT INTERPRETIVE INFORMATION: Vitamin B1, Whole Blood This assay measures the concentration of thiamine diphosphate (TDP), the primary active form of vitamin B1. Approximately 90 percent of vitamin B1 present in whole blood is TDP. Thiamine and thiamine monophosphate, which comprise the remaining 10 percent, are not measured. This test was developed and its performance characteristics determined by [facility]. It has not been cleared or approved by the [place] Food and Drug Administration. This test was performed in a CLIA certified laboratory and is intended for clinical purposes. Performed By: [facility] [address] [place] [address] Head Athletic Trainer/Strength Coach: Ernie Miranda MD, PhD CLIA Number: [id number] Arvind Connell MD LAB BLOOD ORDERABLES Final Res ult Performing Organization Address [facility] [address]/[facility] de Phone Number [facility] [address] [place] [address] * Vitamin B12 (12/11/2024 6:34 AM EDT) [facility] Vitamin B12, Serum 263 210 - 1,033 pg/mL 12/11/2024 10:39 AM EDT [facility] Blood Venous blood specimen / Unknown Venipuncture / Unknown 12/11/2024 6:34 AM EDT 12/11/2024 8:20 AM EDT Arvind Connell MD LAB BLOOD ORDERABLES Final Res ult [facility] [address] [place] [address] documented in this encounter Visit Diagnoses Diagnosis Routine general medical examination at a health care facility documented in this encounter Care Teams Process Controller Relationship Specialty Start Date End Date Pcp, No [address] [place] [address] PCP - General Family Medicine 12/05/24 documented as of this encounter
--- OUTSIDE RECORDS SUMMARY | 2025-02-25 10:53 | XMS_ITS | Encounter Summary ---
Author Organization Healthcare Address [address] [place] [address] Care Team Providers Care Lead Retail Sales Associate Name Role Phone Pcp, No Primary Care Provider Unavailabl e Encounter Details Date Type Department Care Team (Late st Contact Info) Description 12/12/2024 Lab Requisition [facility] [address] [place] [address] Jennifer Krishnan PA [address] [place] [address] Routine general medical examination at [...] How often do you attend chur or sabianist services? Patient unable to answer 12/05/2024 Do [...] one occasion? Patient unable to answer 12/05/2024 [facility] - Occupational Stress Questionnaire Answer Date Recorded [...] ORDERABLES Final Re sult Performing Organization Address [facility] de Phone Number [facility] [address] [place] [address] * Urine Culture (12/12/2024 8:00 AM EDT) Culture 10,000 - 100,000 CFU/mL Mixed urogenital, fecal, or skin ge present. 12/13/2024 2:05 PM EDT [facility] Urine Urine specimen obtained by clean catch procedure / Unknown Non-blood Collection / Unknown 12/12/2024 8:00 AM EDT 12/12/2024 9:20 AM EDT us Jennifer [facility] MICROBIOLOGY - GENERAL OR DERABLES Final Result Performing Organization Address [facility] Phone Number [facility] [address] [place] [address] * Urinalysis Microscopic Examination (12/12/2024 8:00 AM EDT) Urine Urine specimen obtained by clean catch procedure / Unknown Non-blood Collection / Unknown 12/12/2024 8:00 AM EDT 12/12/2024 9:20 AM EDT us Jennifer [facility] URINE ORDERABLES Final Re sult Performing Organization Address [facility] Co de Phone Number [facility] [address] [place] [address] * Urine [place]hton Panel (12/12/2024 8:00 AM [...] [facility] URINE ORDERABLES Final Re sult [facility] [address] [place] [address] * (ABNORMAL) Urinalysis with reflex microscopic (Culture NOT Included) (12/12/2024 8:00 AM EDT) Color, Urine Yellow LAB URINALYSIS - AUTOMATED METHOD 12/12/2024 12:14 PM EDT [facility] Clarity, Urine Cloudy LAB URINALYSIS - AUTOMATED METHOD 12/12/2024 12:14 PM EDT [facility] Spec [place], Urine 1.021 1.005 - 1.030 LAB URINALYSIS - AUTOMATED METHOD 12/12/2024 12:14 PM EDT [facility] pH, Urine 6.5 5.0 - 8.0 LAB URINALYSIS - AUTOMATED METHOD 12/12/2024 12:14 PM EDT [facility] Protein, Urine Trace(A) Negative mg/dL LAB URINALYSIS - AUTOMATED METHOD 12/12/2024 12:14 PM EDT [facility] Glucose, Urine Negative Negative mg/dL LAB URINALYSIS - AUTOMATED METHOD 12/12/2024 12:14 PM EDT [facility] Ketones, Urine 15(A) Negative mg/dL LAB URINALYSIS - AUTOMATED METHOD 12/12/2024 12:14 PM EDT [facility] Blood, Urine Negative Negative LAB URINALYSIS - AUTOMATED METHOD 12/12/2024 12:14 PM EDT [facility] Bilirubin, Urine Negative Negative LAB URINALYSIS - AUTOMATED METHOD 12/12/2024 12:14 PM EDT [facility] Urobilinogen, Urine 1.0 0.2 to 1.0 mg/dL LAB URINALYSIS - AUTOMATED METHOD 12/12/2024 12:14 PM EDT [facility] Leukocytes, Urine Moderate(A) Negative LAB [...] Urine Present Negative 12/12/2024 12:14 PM EDT [facility] Comment:This result was prev iously suppressed from the chart. Calcium Oxalate Crystals Present Absent 12/12/2024 12:14 PM EDT [facility] Comment:This result was prev iously [...] Final Re sult [facility] [address] [place] [address] documented in this encounter Visit Diagnoses Diagnosis Routine general medical examination at a health care facility documented in this encounter Care Teams Lead Retail Sales Associate Relationship Specialty Start Date End Date Pcp, Valeria [address] [place] [address] PCP - General Family Medicine 12/05/24 documented as of this encounter
--- OUTSIDE RECORDS SUMMARY | 2025-02-25 10:53 | XMS_ITS | Encounter Summary ---
Author Organization Healthcare Address [address] [place] [address] Care Team Providers Care Recruitment Internship Name Role Phone Pcp, No Primary Care Provider Unavailabl e Encounter Details Date Type Department Care Team (Late st Contact Info) Description 12/13/2024 Lab Requisition [facility] [address] [place] [address] Barrera Everett PA [address] [place] [address] Routine general medical examination at [...] How often do you attend chur or mormonism services? Patient unable to answer 12/05/2024 Do you belong to any clubs o r organizations such as confucianist groups, unions, fraternal or athletic groups, or [...] one occasion? Patient unable to answer 12/05/[facility]24 [facility] - Occupational Stress Questionnaire Answer [...] were you homeless or living in a chcf (including now)? Patient unable to answer 12/05/2024 [...] facility documented in this encounter Care Teams Recruitment Internship Relationship Specialty Start Date End Date Pcp, [place] [address] PCP - General Family Medicine 12/05/24 documented as of this encounter
--- OUTSIDE RECORDS SUMMARY | 2025-02-25 10:53 | XMS_ITS | Encounter Summary ---
Author Organization Healthcare Address [address] [place] [address] Care Team Providers Care Seed Corn Manager Production Name Role Phone Pcp, No Primary Care Provider Unavailabl e Encounter Details Date Type Department Care Team (Late st Contact Info) Description 12/14/2024 Lab Requisition [facility] [address] [place] [address] German Abarca MD [address] [place] [address] Routine general medical examination at [...] How often do you attend chur or buddhist services? Patient unable to answer 12/05/2024 Do [...] one occasion? Patient unable to answer 12/05/2024 [facility] - Occupational Stress Questionnaire Answer Date [...] were you homeless or living in a group home (including now)? Patient unable to answer 12/05/2024 [...] - 99 mg/dL 12/14/2024 10:07 AM EDT [facility] BUN, Plasma 18 8 - 23 mg/dL 12/14/2024 10:07 AM [facility] Creatinine, Plasma 0.70 0.60 - 1.10 mg/dL 12/14/2024 10:07 AM [facility] BUN/Creatinine Ratio 26 12/14/2024 10:07 AM [facility] Sodium, Plasma 144 136 - 145 mmol/L 12/14/2024 10:07 AM [facility] Potassium, Plasma 4.2 3.6 - 4.9 mmol/L 12/14/2024 10:07 AM [facility] Chloride, Plasma 105 97 - 107 mmol/L 12/14/2024 10:07 AM [facility] CO2, Plasma 29 22 - 29 mmol/L 12/14/2024 10:07 AM [facility] Anion Gap 10 6 - 16 mmol/L 12/14/2024 10:07 AM [facility] Total Calcium, Plasma 9.0 8.9 - 10.2 mg/dL 12/14/2024 10:07 AM [facility] Total Protein 5.7(L) 6.3 - 7.9 g/dL 12/14/2024 10:07 AM [facility] Albumin, Plasma 3.7 3.5 - 5.2 g/dL 12/14/2024 10:07 AM [facility] AST, Plasma 36(H) 10 - 35 U/L 12/14/2024 10:07 AM [facility] ALT, Plasma 29 10 - 35 U/L 12/14/2024 10:07 AM [facility] Alkaline Phosphatase, Plasma 61 46 - 142 U/L 12/14/2024 10:07 AM [facility] Total Bilirubin, Plasma 0.2 0.2 - 1.1 mg/dL 12/14/2024 10:07 AM [facility] eGFRcr 92.0 mL/min/1.7 3m*2 12/14/2024 10:07 AM [facility] Comment:Reported eGFRcr in m L/min/1.73m2 is based the CKD-EPI 2020 equation that does not use a race coefficient. Blood Venous blood specimen / Unknown Venipuncture / Unknown 12/14/2024 5:57 AM EDT 12/14/2024 7:43 AM EDT us German Abarca MD LAB BLOOD ORDERABLES Final Result [facility] [address] [place] [address] * CBC and Differential (12/14/2024 5:57 AM EDT) WBC Count 7.27 3.70 - 10.30 10*3/uL LAB HEMATOLOGY METHOD 12/14/2024 9:42 AM EDT [facility] RBC Count 4.06 3.90 - 5.20 10*6/uL LAB HEMATOLOGY METHOD 12/14/2024 9:42 AM EDT [facility] HGB 12.2 11.2 - 15.7 g/dL LAB HEMATOLOGY METHOD 12/14/2024 9:42 AM EDT [facility] HCT 38.0 34.0 - 45.0 % LAB HEMATOLOGY METHOD 12/14/2024 9:42 AM EDT [facility] Platelet Count 243 155 - 369 10*3/uL LAB HEMATOLOGY METHOD 12/14/2024 9:42 AM EDT [facility] MCV 94 79 - 98 fL LAB HEMATOLOGY METHOD 12/14/2024 9:42 AM EDT [facility] MCH 30.0 26.0 - 32.0 pg LAB HEMATOLOGY METHOD 12/14/2024 9:42 AM EDT [facility] MCHC 32.1 30.7 - 35.5 g/dL LAB HEMATOLOGY METHOD 12/14/2024 9:42 AM EDT [facility] RDW 13.0 11.5 - 14.5 % LAB HEMATOLOGY METHOD 12/14/2024 9:42 AM EDT [facility] MPV 10.0 8.8 - 12.5 fL LAB HEMATOLOGY METHOD 12/14/2024 9:42 AM EDT [facility] nRBC 0.0 <=0.0 per 100 WBCs LAB HEMATOLOGY METHOD 12/14/2024 9:42 AM EDT [facility] Differential Type Automated LAB HEMATOLOGY METHOD 12/14/2024 9:42 AM EDT [facility] Neutrophils % 49 % LAB HEMATOLOGY METHOD 12/14/2024 9:42 AM EDT [facility] Lymphocytes % 39 % LAB HEMATOLOGY METHOD 12/14/2024 9:42 AM EDT [facility] Monocytes % 9 % LAB HEMATOLOGY METHOD 12/14/2024 9:42 AM EDT [facility] Eosinophils % 2 % LAB HEMATOLOGY METHOD 12/14/2024 9:42 AM EDT [facility] Basophils % 1 % LAB HEMATOLOGY METHOD 12/14/2024 9:42 AM EDT [facility] Immature Granulocytes % 0 % LAB HEMATOLOGY METHOD 12/14/2024 9:42 AM EDT [facility] Neutrophils Absolute 3.55 1.60 - 6.10 10*3/uL LAB HEMATOLOGY METHOD 12/14/2024 9:42 AM EDT [facility] Lymphocytes Absolute 2.85 1.20 - 3.90 10*3/uL LAB HEMATOLOGY METHOD 12/14/2024 9:42 AM EDT [facility] Monocytes Absolute 0.68 0.30 - 0.90 10*3/uL LAB HEMATOLOGY METHOD 12/14/2024 9:42 AM EDT [facility] Eosinophils Absolute 0.11 0.00 - 0.50 10*3/uL LAB HEMATOLOGY METHOD 12/14/2024 9:42 AM EDT [facility] Basophils Absolute 0.06 0.00 - 0.10 10*3/uL LAB HEMATOLOGY METHOD 12/14/2024 9:42 AM EDT [facility] Immature Granulocytes Absolute 0.02 0.00 - 0.06 10*3/uL LAB HEMATOLOGY METHOD 12/14/2024 9:42 AM EDT [facility] Blood Venous blood specimen / Unknown Venipuncture / Unknown 12/14/2024 5:57 AM EDT 12/14/2024 7:43 AM EDT Narrative [facility] - 12/14/2024 9:42 AM EDT Therapeutic decision making should be based on absolute values, rather than percentages. us German Abarca MD LAB BLOOD ORDERABLES Final Result [facility] [address] [place] [address] * (ABNORMAL) Valproic acid level, total (12/14/2024 5:57 AM EDT) Valproic Acid 30(L) 50 - 100 ug/mL 12/14/2024 11:01 AM EDT [facility] Blood Venous blood specimen / Unknown Venipuncture / Unknown 12/14/2024 5:57 AM EDT 12/14/2024 7:43 AM EDT Narrative [facility] - 12/14/2024 11:01 AM EDT Therapeutic: 50 to 100 ug/mL Supratherapeutic: >120 ug/mL us German Abarca MD LAB BLOOD ORDERABLES Final Result [facility] [address] [place] [address] documented in this encounter Visit Diagnoses Diagnosis Routine general medical examination at a health care facility documented in this encounter Care Teams Seed Corn Manager Production Relationship Specialty Start Date End Date Pcp, No [address] [place] [address] PCP - General Family Medicine 12/05/24 documented as of this encounter
--- OUTSIDE RECORDS SUMMARY | 2025-02-25 10:53 | XMS_ITS | Encounter Summary ---
Author Organization Healthcare Address [address] [address] Care Team Providers Care Raw Juice Weigher Name Role Phone Pcp, No Primary Care Provider Unavailabl e Encounter Details Date Type Department Care Team (Late st Contact Info) Description 12/25/2024 Lab Requisition [facility] [address] [place] [address] Shailesh Slaughter DO [address] [place] [address] Routine general medical examination at [...] How often do you attend chur or adventist services? Patient unable to answer 12/05/2024 Do [...] one occasion? Patient unable to answer 12/05/2024 [facility] - Occupational Stress Questionnaire Answer [...] were you homeless or living in a penitentiary (including now)? Patient unable to answer 12/05/2024 [...] - 100 ug/mL 12/25/2024 3:25 PM EDT [facility] Blood Venous blood specimen / Unknown Venipuncture / Unknown 12/25/2024 6:40 AM EDT 12/25/2024 6:41 AM EDT Narrative [facility] - 12/25/2024 3:25 PM EDT Therapeutic: 50 to 100 ug/mL Supratherapeutic: >120 ug/mL us Shailesh Slaughter DO LAB BLOOD ORDERABLES Final Result [facility] [address] [place] [address] * CBC and Differential (12/25/2024 6:00 AM EDT) WBC Count 7.27 3.70 - 10.30 10*3/uL LAB HEMATOLOGY METHOD 12/25/2024 12:19 PM EDT [facility] RBC Count 4.29 3.90 - 5.20 10*6/uL LAB HEMATOLOGY METHOD 12/25/2024 12:19 PM EDT [facility] HGB 13.0 11.2 - 15.7 g/dL LAB HEMATOLOGY METHOD 12/25/2024 12:19 PM EDT [facility] HCT 40.8 34.0 - 45.0 % LAB HEMATOLOGY METHOD 12/25/2024 12:19 PM EDT [facility] Platelet Count 256 155 - 369 10*3/uL LAB HEMATOLOGY METHOD 12/25/2024 12:19 PM EDT [facility] MCV 95 79 - 98 fL LAB HEMATOLOGY METHOD 12/25/2024 12:19 PM EDT [facility] MCH 30.3 26.0 - 32.0 pg LAB HEMATOLOGY METHOD 12/25/2024 12:19 PM EDT [facility] MCHC 31.9 30.7 - 35.5 g/dL LAB HEMATOLOGY METHOD 12/25/2024 12:19 PM EDT [facility] RDW 13.2 11.5 - 14.5 % LAB HEMATOLOGY METHOD 12/25/2024 12:19 PM EDT [facility] MPV 10.7 8.8 - 12.5 fL LAB HEMATOLOGY METHOD 12/25/2024 12:19 PM EDT [facility] nRBC 0.0 <=0.0 per 100 WBCs LAB HEMATOLOGY METHOD 12/25/2024 12:19 PM EDT [facility] Differential Type Automated LAB HEMATOLOGY METHOD 12/25/2024 12:19 PM EDT [facility] Neutrophils % 53 % LAB HEMATOLOGY [...] ORDERABLES Final Result [facility] [address] [place] [address] documented in this encounter Visit Diagnoses Diagnosis Routine general medical examination at a health care facility documented in this encounter Care Teams Raw Juice Weigher Relationship Specialty Start Date End Date Pcp, Valeria [address] [place] [address] PCP - General Family Medicine 12/05/24 documented as of this encounter
--- OUTSIDE RECORDS SUMMARY | 2025-02-25 10:53 | XMS_ITS | Clinical Summary ---
Author Organization Healthcare Address [address] [place] [address] Care Team Providers Care Sheet Taker Name Role Phone Pcp, No Primary Care [...] Department Care Team Description 01/02/2025 Lab Requisition [facility] [address] [place] [address] Lewis Price MD Routine general medical examination at a health care facility 12/25/2024 Lab Requisition [facility] [address] [place] [address] Shailesh Slaughter DO Routine general medical examination at a health care facility 12/21/2024 11:42 AM EDT - 12/21/2024 11:59 PM EDT Hospital Encounter [facility] [address] [place] [address] Bipolar disorder; Cognitive decline; Acute psychosis (CMS/HCC) Discharge Disposition: Home or Self Care 12/21/2024 Travel 12/14/2024 Lab Requisition [facility] [address] [place] [address] German Abarca MD Routine general medical examination at a health care facility 12/13/2024 Telephone [facility] [address] [place] [address] Joan Flores 12/13/2024 Lab Requisition [facility] [address] [place] [address] Barrera Everett PA Routine general medical examination at a health care facility 12/12/2024 Lab Requisition [facility] [address] [place] [address] Jennifer Krishnan PA Routine general medical examination at a health care facility 12/11/2024 Lab Requisition [facility] [address] [place] [address] Arvind Connell MD Routine general medical examination at a health care facility 12/05/2024 7:24 AM EDT - 12/10/2024 4:30 PM EDT Hospital Encounter [facility] [address] [place] [address] Ian lamar, MD Ebonie Ramos Sarah M, DO Unspecified mood (affective) disorder (CMS/HCC) (Primary Dx); Bipolar disorder, current episode manic without psychotic features, unspecified (CMS/HCC) Discharge Disposition: Psychiatric Hospital 12/05/2024 Plan of Care Documentation [facility] [address] [place] [address] 12/05/2024 Travel from Last 3 [...] answer 12/05/2024 How often do you attend [facility] or episcopal services? Patient unable to answer 12/05/2024 Do you belong to any clubs o r organizations such as catholic groups, unions, fraternal or athletic groups, or [...] one occasion? Patient unable to answer 12/05/2024 [facility] - Occupational [...] any time in the past 12 m [facility], were you homeless or living in a [facility] (including now)? Patient unable to answer 12/05/2024 [...] the past 12 months has th e [employer], gas, oil, or water company threatened to [...] 2002 UKY-Zoster Vaccines (1 of 2) 2002 [id number] Vaccine ( season) 2025 06/11/2024, 12/07/2021, 12/21/2020, [...] EDT Routine general medical examination at a [facility] care facility VALPROIC ACID LEVEL, TOTAL Routine 12/14/2024 5:57 AM EDT Routine general medical examination at a [facility] care facility SEND JENNIFER MESSAGE Routine 12/12/2024 8: 00 AM EDT Routine general medical examination at a health care facility URINALYSIS MICROSCOPIC FOR UA REFLEX Routine 12/12/2024 8:00 AM EDT Routine general medical examination at a health care facility URINE ASHTON PANEL Routine 12/12/2024 8:00 AM EDT Routine general medical examination at a [facility] care facility URINALYSIS WITH REFLEX MICROSCOPIC Routine 12/12/2024 8:00 AM EDT Routine general medical examination at a [facility] care facility URINALYSIS WITH REFLEX MICROSCOPIC AND CULTURE Routine 12/12/2024 8:00 AM EDT Routine general medical examination at a health care facility URINE CULTURE Routine 12/12/2024 8:00 AM EDT Routine general medical examination at a [facility] care facility VITAMIN D 25 HYDROXY Routine [...] LAB HEMATOLOGY METHOD 01/02/2025 11:16 AM EDT [facility] RBC Count 4.14 3.90 - 5.20 10*6/uL LAB HEMATOLOGY METHOD 01/02/2025 11:16 AM EDT [facility] HGB 12.5 11.2 - 15.7 g/dL LAB HEMATOLOGY METHOD 01/02/2025 11:16 AM EDT [facility] HCT 39.3 34.0 - 45.0 % LAB HEMATOLOGY METHOD 01/02/2025 11:16 AM EDT [facility] Platelet Count 294 155 - 369 10*3/uL LAB HEMATOLOGY METHOD 01/02/2025 11:16 AM EDT [facility] MCV 95 79 - 98 fL LAB HEMATOLOGY METHOD 01/02/2025 11:16 AM EDT [facility] MCH 30.2 26.0 - 32.0 pg LAB HEMATOLOGY METHOD 01/02/2025 11:16 AM EDT [facility] MCHC 31.8 30.7 - 35.5 g/dL LAB HEMATOLOGY METHOD 01/02/2025 11:16 AM EDT [facility] RDW 13.3 11.5 - 14.5 % LAB HEMATOLOGY METHOD 01/02/2025 11:16 AM EDT [facility] MPV 10.0 8.8 - 12.5 fL LAB HEMATOLOGY METHOD 01/02/2025 11:16 AM EDT [facility] nRBC 0.0 <=0.0 per 100 WBCs LAB HEMATOLOGY METHOD 01/02/2025 11:16 AM EDT [facility] Differential Type Automated LAB HEMATOLOGY METHOD 01/02/2025 11:16 AM EDT [facility] Neutrophils % 61 % LAB HEMATOLOGY METHOD 01/02/2025 11:16 AM EDT [facility] Lymphocytes % 25 % LAB HEMATOLOGY METHOD 01/02/2025 11:16 AM EDT [facility] Monocytes % 10 % LAB HEMATOLOGY METHOD 01/02/2025 11:16 AM EDT [facility] Eosinophils % 2 % LAB HEMATOLOGY METHOD 01/02/2025 11:16 AM EDT [facility] Basophils % 1 % LAB HEMATOLOGY METHOD 01/02/2025 11:16 AM EDT [facility] Immature Granulocytes % 1 % LAB HEMATOLOGY METHOD 01/02/2025 11:16 AM EDT [facility] Neutrophils Absolute 4.63 1.60 - 6.10 10*3/uL LAB HEMATOLOGY METHOD 01/02/2025 11:16 AM EDT [facility] Lymphocytes Absolute 1.89 1.20 - 3.90 10*3/uL LAB HEMATOLOGY METHOD 01/02/2025 11:16 AM EDT [facility] Monocytes Absolute 0.73 0.30 - 0.90 10*3/uL LAB HEMATOLOGY METHOD 01/02/2025 11:16 AM EDT [facility] Eosinophils Absolute 0.16 0.00 - 0.50 10*3/uL LAB HEMATOLOGY METHOD 01/02/2025 11:16 AM EDT [facility] Basophils Absolute 0.06 0.00 - 0.10 10*3/uL LAB HEMATOLOGY METHOD 01/02/2025 11:16 AM EDT [facility] Immature Granulocytes Absolute 0.06 0.00 [...] BLOOD ORDERABLES Fin al Result [facility] [address] [place] [id number] * Valproic acid level, total (01/02/2025 7:43 AM EDT) Only the most recent of3 resultswithin the time period is included. Valproic Acid 71 50 - 100 ug/mL 01/02/2025 11:13 AM EDT [facility] Blood Venous blood specimen / Unknown Venipuncture / Unknown 01/02/2025 7:43 AM EDT 01/02/2025 8:36 AM EDT Narrative [facility] - 01/02/2025 11:13 AM EDT Therapeutic: 50 to 100 ug/mL Supratherapeutic: >120 ug/mL us Lewis Price MD LAB BLOOD ORDERABLES Fin al Result [facility] [address] [place] [address] * (ABNORMAL) Comprehensive metabolic panel (01/02/2025 7:43 AM EDT) Only the most recent of3 resultswithin the time period is included. Glucose, Plasma 98 74 - 99 mg/dL 01/02/2025 11:44 AM EDT [facility] BUN, Plasma 14 8 - 23 mg/dL 01/02/2025 11:44 AM EDT [facility] Creatinine, Plasma 0.66 0.60 - 1.10 mg/dL 01/02/2025 11:44 AM EDT [facility] BUN/Creatinine Ratio 21 01/02/2025 11:44 AM EDT [facility] Sodium, Plasma 137 136 - 145 mmol/L 01/02/2025 11:44 AM EDT [facility] Potassium, Plasma 4.6 3.6 - 4.9 mmol/L 01/02/2025 11:44 AM EDT [facility] Chloride, Plasma 99 97 - 107 mmol/L 01/02/2025 11:44 AM EDT [facility] CO2, Plasma 26 22 - 29 mmol/L 01/02/2025 11:44 AM EDT [facility] Anion Gap 12 6 - 16 mmol/L 01/02/2025 11:44 AM EDT [facility] Total Calcium, Plasma 8.5(L) 8.9 - 10.2 mg/dL 01/02/2025 11:44 AM EDT [facility] Total Protein 6.1(L) 6.3 - 7.9 g/dL 01/02/2025 11:44 AM EDT [facility] Albumin, Plasma 4.0 3.5 - 5.2 g/dL 01/02/2025 11:44 AM EDT [facility] AST, Plasma 19 10 - 35 U/L 01/02/2025 11:44 AM EDT [facility] ALT, Plasma 13 10 - 35 U/L 01/02/2025 11:44 AM EDT [facility] Alkaline Phosphatase, Plasma 64 46 - 142 U/L 01/02/2025 11:44 AM EDT [facility] Total Bilirubin, Plasma 0.2 0.2 - 1.1 mg/dL 01/02/2025 11:44 AM EDT [facility] eGFRcr 93.3 mL/min/1.7 3m*2 01/02/2025 11:44 AM EDT [facility] Comment:Reported eGFRcr in m L/min/1.73m2 is based the CKD-EPI 2020 equation that does not use a race coefficient. Blood Venous blood specimen / Unknown Venipuncture / Unknown 01/02/2025 7:43 AM EDT 01/02/2025 8:36 AM EDT us Lewis Price MD LAB BLOOD ORDERABLES Fin al Result [facility] [address] [place] [address] * ECG Adult (Now - Performed in your clinic) (12/21/2024 2:01 PM EDT) EKG DIAGNOSIS CLASS Normal MUSE ECG Ventricular Rate 79 BPM MUSE ECG Atrial Rate 79 BPM MUSE ECG WV Interval 148 ms MUSE ECG QRSD Interval 84 ms MUSE ECG QT Interval 382 ms MUSE ECG QTC Interval 438 ms MUSE ECG P [place] 60 degrees MUSE ECG R [place] -35 degrees MUSE ECG T Wave [place] 31 degrees MUSE ECG Diagnosis Normal sinus rhythm MUSE ECG Diagnosis Normal ECG MUSE ECG Diagnosis MUSE ECG Diagnosis Confirmed by Oskar Nelson ([id number]) on 12/24/2024 11:00:50 AM MUSE ECG 12/21/2024 [...] error, please notify the sender immediately at [phone] and permanently delete the original report and destroy any copies or printouts. Narrative 12/23/2024 8:22 AM EDT [facility] - Phone Outpatient NAME: Angie Keen DATE OF EXAM: 12/21/2024 Patient No: [id number] Physician: Tevin^German^Ridge Date of : 1950 Past [...] (recent vs historical dx?), who presented to [facility] via EMS from [facility] ([facility]) with concerns of manic symptoms and altered mental status, and admitted 12/05/[address] [facility] for continued management of the same. They were subsequently admitted to [facility] 12/05/2024 on 72 hour hold for [...] Keen DATE OF EXAM: 12/21/2024 Patient No: [id number] Physician: Tevin^German^Ridge Date of : 1950 Past Medical/Surgical History (entered by technologist): Symptoms/Reason For Exam (entered by technologist): Dx: Bipolar disorder;Cognitive decline; Acute psychosis Tech Notes (entered by technologist): No contrast; Dx: Bipolar disorder;Cognitive decline; Acute psychosis. 12/10/24: 74 yo female with a PMHx ofCOPD and hyponatremia per tayla review, and reported psychiatric hx ofBPAD2 (recent vs historical dx?), [facility] with concerns of manic symptoms and altered mentalstatus, and admitted 12/05/[address] [facility] for continued management of thesame. They were subsequently admitted to [facility] 12/05/2024 on 72 hour holdfor continued [...] in error, pleasenotify the sender immediately at [phone] and permanently delete theoriginal report and destroy [...] ORDERABLES Final Re sult Performing Organization Address City/[facility] Co de Phone Number [facility] [address] [place] [address] * Urine Ashton Panel (12/12/2024 8:00 AM EDT) Only the most recent of2 resultswithin the time period is included. Extra Sent for Culture 12/12/2024 1:01 PM EDT [facility] Comment:Previously prelim ve rified as Specimen evaluation in progress on 12/12/2024 at 1201 EDT. Urine Urine specimen obtained by clean catch procedure / Unknown Non-blood Collection / Unknown 12/12/2024 8:00 AM EDT 12/12/2024 9:20 AM EDT Jennifer WHITLEY LAB URINE ORDERABLES Final Re sult Performing Organization Address City/State/[facility] Co de Phone Number [facility] [address] [place] [address] * Urinalysis Microscopic Examination (12/12/2024 8:00 AM EDT) Only the most recent of2 resultswithin the time period is included. Urine Urine specimen obtained by clean catch procedure / Unknown Non-blood Collection / Unknown 12/12/2024 8:00 AM EDT 12/12/2024 9:20 AM EDT us Jennifer WHITLEY LAB URINE ORDERABLES Final Re sult [facility] [address] [place] [address] * (ABNORMAL) Urinalysis with reflex microscopic (Culture NOT Included) (12/12/2024 8:00 AM EDT) Only the most recent of2 resultswithin the time period is included. Color, Urine Yellow LAB URINALYSIS - AUTOMATED METHOD 12/12/2024 12:14 PM EDT [facility] Clarity, Urine Cloudy LAB URINALYSIS - AUTOMATED METHOD 12/12/2024 12:14 PM EDT [facility] Spec [place], Urine 1.021 1.005 - 1.030 LAB URINALYSIS - AUTOMATED METHOD 12/12/2024 12:14 PM EDT [facility] pH, Urine 6.5 5.0 - 8.0 LAB URINALYSIS - AUTOMATED METHOD 12/12/2024 12:14 PM EDT [facility] Protein, Urine Trace(A) Negative mg/dL LAB URINALYSIS - AUTOMATED METHOD 12/12/2024 12:14 PM EDT [facility] Glucose, Urine Negative Negative mg/dL LAB URINALYSIS - AUTOMATED METHOD 12/12/2024 12:14 PM EDT [facility] Ketones, Urine 15(A) Negative mg/dL LAB URINALYSIS - AUTOMATED METHOD 12/12/2024 12:14 PM EDT [facility] Blood, Urine Negative Negative LAB URINALYSIS - AUTOMATED METHOD 12/12/2024 12:14 PM EDT [facility] Bilirubin, Urine Negative Negative LAB URINALYSIS - AUTOMATED METHOD 12/12/2024 12:14 PM EDT [facility] Urobilinogen, Urine 1.0 0.2 to 1.0 mg/dL LAB URINALYSIS - AUTOMATED METHOD 12/12/2024 12:14 PM EDT [facility] Leukocytes, Urine Moderate(A) Negative LAB URINALYSIS - AUTOMATED METHOD 12/12/2024 12:14 PM EDT [facility] Nitrite, Urine Negative Negative LAB URINALYSIS - AUTOMATED METHOD 12/12/2024 12:14 PM EDT [facility] RBC, Urine <1 0 to 3 /HPF 12/12/2024 12:14 PM EDT [facility] Comment:This result was prev iously suppressed from the chart. WBC, Urine 11 - 20(A) 0 to 5 /HPF 12/12/2024 12:14 PM EDT [facility] Comment:This result was prev iously suppressed from the chart. Squamous Epithelial Cells 11 - 20(A) 0 to 5 /HPF 12/12/2024 12:14 PM EDT [facility] Comment:This result was prev iously suppressed from the chart. Hyaline Casts 0 - 2 0 to 5 /LPF 12/12/2024 12:14 PM EDT [facility] Comment:This result was prev iously suppressed from the chart. Bacteria, Urine Present Negative 12/12/2024 12:14 PM EDT [facility] Comment:This result was prev iously suppressed from the chart. Calcium Oxalate Crystals Present Absent 12/12/2024 12:14 PM EDT [facility] Comment:This result was prev iously suppressed from the chart. Mucus Present 12/12/2024 12:14 PM EDT [facility] Comment:This result was prev iously suppressed from the chart. Urine Urine specimen obtained by clean catch procedure / Unknown Non-blood Collection / Unknown 12/12/2024 8:00 AM EDT 12/12/2024 9:20 AM EDT Narrative [facility] - 12/12/2024 12:14 PM EDT Performed by manual method us Jennifer WHITLEY LAB URINE ORDERABLES Final Re sult [facility] [address] [place] [address] * Urine Culture (12/12/2024 8:00 AM EDT) Only the most recent of2 resultswithin the time period is included. Culture 10,000 - 100,000 CFU/mL Mixed urogenital, fecal, or skin ge present. 12/13/2024 2:05 PM EDT [facility] Urine Urine specimen obtained by clean catch procedure / Unknown Non-blood Collection / Unknown 12/12/2024 8:00 AM EDT 12/12/2024 9:20 AM EDT us Jennifer WHITLEY LAB MICROBIOLOGY - GENERAL OR DERABLES Final Result Performing Organization Address [facility]/ZIP Co de Phone Number [facility] [address] [place] [address] * Methylmalonic acid, serum (12/11/2024 6:34 AM EDT) Methylmalonic Acid 88 50 - 400 nmol/L 12/14/2024 3:24 AM EDT [facility] Blood Venous blood specimen / Unknown Venipuncture / Unknown 12/11/2024 6:34 AM EDT 12/11/2024 8:20 AM EDT Narrative [facility] - 12/14/2024 3:24 AM EDT Test performed by LC-MS/MS at the [facility]. This test was developed and its performance characteristics determined by [facility]. It has not been cleared or approved by the FDA. The laboratory is regulated under CLIA as qualified to perform high-complexity testing. This test is used for clinical purposes. us Arvind Connell MD LAB BLOOD ORDERABLES Final Res ult [facility] [address] [place] [address] * Vitamin D 25 Hydroxy (12/11/2024 6:34 AM EDT) Vitamin D 25 Hydroxy 44.6 20.0 - 80.0 ng/mL 12/11/2024 10:49 AM EDT [facility] Blood Venous blood specimen / Unknown Venipuncture / Unknown 12/11/2024 6:34 AM EDT 12/11/2024 8:20 AM EDT Narrative [facility] - 12/11/2024 10:49 AM EDT Testing performed on [employer], standardized against NIST SRM 2972. When [...] MD LAB BLOOD ORDERABLES Final Res ult [facility] [address] [place] [address] * Vitamin B1, Whole Blood (12/11/2024 6:34 AM EDT) Pathologist [facility] VITAMIN B1, WHOLE BLOOD 124 70 - 180 nmol/L 12/14/2024 5:56 AM EDT [facility] ([facility]) Blood Venous blood specimen / Unknown Venipuncture / Unknown 12/11/2024 6:34 AM EDT 12/11/2024 6:40 AM EDT Narrative [facility] ([facility]) - 12/14/2024 5:56 AM EDT [...] developed and its performance characteristics determined by [employer]. It has not been cleared or approved by the US Food and Drug Administration. This test was performed in a CLIA certified laboratory and is intended for clinical purposes. Performed By: [employer] [address] [place] [address] [id number] [address] Design Draftsperson: Ernie Miranda MD, PhD CLIA Number: [id number] Arvind Connell MD LAB BLOOD ORDERABLES Final Res ult [facility] ([facility]) [address] [place] [address] * Vitamin B12 (12/11/2024 6:34 AM EDT) Vitamin B12, Serum 263 210 - 1,033 pg/mL 12/11/2024 10:39 AM EDT [facility] Blood Venous blood specimen / Unknown Venipuncture / Unknown 12/11/2024 6:34 AM EDT 12/11/2024 8:20 AM EDT Arvind Connell MD LAB BLOOD ORDERABLES Final Res ult Performing Organization Address City/[facility]/ZIP Co de Phone Number [facility] [address] [place] [address] * Thyroid Stimulating Hormone, Plasma (12/05/2024 8:30 PM EDT) Thyroid Stimulating Hormone, Plasma 2.05 0.40 - 4.20 uIU/mL 12/05/2024 9:08 PM EDT [facility] Blood Venous blood specimen / Unknown Venipuncture / Unknown 12/05/2024 8:30 PM EDT 12/05/2024 8:34 PM EDT Result [facility] Abram Farfan APRN, DNP LAB BLOOD ORDERABLES Fi nal Result Performing Organization Address City/[facility]/ZIP Co de Phone Number [facility] [address] [place] [address] * Free T4, Plasma (12/05/2024 8:30 PM EDT) Free T4, Plasma 1.4 0.8 - 1.7 ng/dL 12/05/2024 9:06 PM EDT [facility] Blood Venous blood specimen / Unknown Venipuncture / Unknown 12/05/2024 8:30 PM EDT 12/05/2024 8:34 PM EDT Abram Farfan APRN, FABIAN LAB BLOOD ORDERABLES Fi nal Result Performing Organization Address City/[facility]/ZIP Co de Phone Number [facility] [address] [place] [address] * Phosphorus (12/05/2024 8:30 PM EDT) Phosphorus, Plasma 3.4 2.5 - 4.5 mg/dL 12/05/2024 9:08 PM EDT [facility] Blood Venous blood specimen / Unknown Venipuncture / Unknown 12/05/2024 8:30 PM EDT 12/05/2024 8:34 PM EDT us Abram Farfan APRN, FABIAN LAB BLOOD ORDERABLES Fi nal Result Performing Organization Address [facility] Co de Phone Number [facility] [address] [place] [address] * Magnesium (12/05/2024 8:30 PM EDT) Magnesium, Plasma 2.2 1.9 - 2.4 mg/dL 12/05/2024 9:08 PM EDT [facility] Blood Venous blood specimen / Unknown Venipuncture / Unknown 12/05/2024 8:30 PM EDT 12/05/2024 8:34 PM EDT us Abram Farfan APRN, FABIAN LAB BLOOD ORDERABLES Fi nal Result Performing Organization Address City/[facility] Co de Phone Number [facility] [address] [place] [address] * (ABNORMAL) Hemoglobin A1c (12/05/2024 8:30 PM EDT) Hemoglobin A1c 5.7(H) <5.7 % 12/06/2024 11:03 AM EDT [facility] Blood Venous blood specimen / Unknown Venipuncture / Unknown 12/05/2024 8:30 PM EDT 12/05/2024 8:34 PM EDT Narrative [facility] - 12/06/2024 11:03 AM EDT HA1C Interpretive Data: Diagnosis of Diabetes: Diabetic > or = 6.5% Pre-diabetic 5.7 to 6.4% Non-diabetic < or = 5.6% Glycemic Targets for Type I and Type II Diabetics: Non- Adults <7.0% Adults <6.0% Children and Adolescents <7.5% Source: [place] Diabetes Association. Standards of medical care in diabetes,2017. Diabetes Care.2017:40 (suppl 1):S1-S135. Abram Farfan APRN, DNP LAB BLOOD ORDERABLES Fi nal Result [facility] [address] [place] [address] * Lipid panel (12/05/2024 8:30 PM EDT) [facility] Cholesterol, Plasma 181 <200 mg/dL 12/05/2024 9:08 [...] 12 hours? No 12/05/2024 9:08 PM EDT [facility] Blood Venous blood specimen / Unknown Venipuncture / Unknown 12/05/2024 8:30 PM EDT 12/05/2024 8:34 PM EDT Abram Farfan ROLL OUT MANAGER, DNP LAB BLOOD ORDERABLES Fi nal Result Performing Organization Address City/[facility] Co de Phone Number [facility] [address] [place] [address] * Hepatitis B Surface Antigen - Empath (12/05/2024 11:56 AM EDT) Pathologist [facility] Hepatitis B Surf Antigen Negative Negative 12/05/2024 11:56 AM EDT [facility] Blood Venous blood specimen / Unknown 12/05/2024 8:59 AM EDT Lucia Mattson APRN LAB BLOOD ORDERABLES F inal Result Performing Organization Address [facility] Co de Phone Number [facility] [address] [place] [address] * HIV 1 & 2 Antibody/Antigen Screen (12/05/2024 10:58 AM EDT) [facility] HIV 1 & 2 Antibody/Antigen Screen Non Reactive Non Reactive 12/05/2024 10:58 AM EDT [facility] Comment:Screening for HIV 1 & 2 antibodies, and P24 antigen is NONREACTIVE. No confirmatory testing is required. Blood Venous blood specimen / Unknown 12/05/2024 8:59 AM EDT Lucia Mattson APRN LAB BLOOD ORDERABLES F inal Result Performing Organization Address [facility] Co de Phone Number [facility] [address] [place] [address] * Hepatitis C Antibody with Reflex to HCV Quant PCR - Empath (12/05/2024 10:57 AM EDT) Pathologist [facility] Hepatitis C Antibody Negative Negative 12/05/2024 10:57 AM EDT [facility] Blood Venous blood specimen / Unknown 12/05/2024 8:59 AM EDT Lucia Kelly Twila ROLL OUT MANAGER LAB BLOOD ORDERABLES F inal Result [facility] [address] [place] [address] * COLONOSCOPY (11/06/2015) Anatomical Region Laterality Modality [...] Patient has decision-making capacity? Yes Care Teams Sheet Taker Relationship Specialty Start Date End Date Pcp, No [address] [place] [address] PCP - General Family Medicine 12/05/24
--- NOTE | 2025-02-25 11:15 | MM_ITS ---
PROCEDURE INFORMATION: Exam: MG Bilateral Screening 3D Mammography Exam date and time: 02/25/2025 11:14 AM Age: 74 years old Clinical indication: Screening exam TECHNIQUE: Imaging protocol: Bilateral Screening tomosynthesis and 2D mammography including computer-aided detection (CAD) when performed. COMPARISON: 1. MG DMSB DIG MAMM-SCREEN JANIE 07/12/2014 10:32 AM 2. MG MM DIG SCREENING MAMM BI W/CAD 02/25/2025 11:14 AM FINDINGS: MAMMOGRAPHY: Breast composition: There are scattered areas of fibroglandular density. Mass: No suspicious masses. Architectural distortion: None. Calcifications: No suspicious calcifications. Asymmetric density: None. Skin thickening: None. Axillary adenopathy: None. IMPRESSION: No mammographic evidence of malignancy. Annual screening is recommended unless otherwise clinically indicated. ASSESSMENT: BI-RADS Category 1: Negative.
== END 2025-02-25 23:59 | disposition home or self-care (01) ==
LOC: RAD 10:39
PROVIDERS: PCP Nurse Practitioner Obstetrics & Gynecology; Visit Provider Nurse Practitioner Obstetrics & Gynecology
DX: Z12.31 Encounter for screening mammogram for malignant neoplasm of breast (principal); R92.323 Mammographic fibroglandular density, bilateral breasts
CPT/HCPCS: 77063; 77067